=== PATIENT | female | born 1985 | race Caucasian/White ===

== ENCOUNTER 2023-04-13 08:36 | Emergency (ER) | payer OTHER, SELFPAY ==
[2023-04-13 08:41] VITALS: BP 138/89; PULSE 81; RESP 20; TEMP 36.4; O2SAT 97; BMI 52.0
--- NOTE | 2023-04-13 09:02 | ED_ITS ---
HPI - Back Pain/Injury General Chief Complaint: Back Pain/Injury Stated Complaint: BACK PAIN Time Seen by Provider: 04/13/23 08:51 Source: patient Mode of arrival: walk-in Limitations: no limitations History of Present Illness HPI Narrative: This patient is here complaining of right lateral lower back pain. It is not in the midline. She has not had previous back problems. She has no radiculopathy or neurological symptoms. She states she was fine but when she was getting out of her car yesterday she felt a pulling aching sensation at that very moment. It is much worse with twisting and turning and bending. Earlier in the day yesterday, she carried a substantially heavy air conditioner to the curb. She did not have any pain at that time. She does not have any personal history of kidney stones. She has no family history of kidney stones. The pain is made better when she rests and does not turn. It does not run down her leg. There is no bowel or bladder incontinence. Her last menstrual period was 2 weeks ago. She has not seen any blood in her urine. Related Data Home Medications Medication Instructions Recorded Confirmed No Known Home Medications 04/13/23 04/13/23 Allergies Allergy/AdvReac Type Severity Reaction Status Date / Time Sulfa (Sulfonamide Allergy Severe Hives Verified 04/13/23 08:46 Antibiotics) [facility] Medical History (Updated 04/13/23 @ 09:55 by Yossi Mccann MD) No pertinent past medical history ?Z78.9 - Other specified health status (ICD-10) No pertinent past psychiatric history Surgical History (Updated 04/13/23 @ 08:54 by Ovidio Jerry) History of ?Z98.891 - History of uterine scar from previous surgery (ICD-10) Social History Smoking status: Never smoker Exam Narrative Exam Narrative: Patient awake alert pleasant does not appear an extremis. She has no evidence of hypoperfusion to her extremities. Examination of her back there is no skin lesions. Her lungs are completely clear with no wheeze rales or rhonchi. She has no midline pain. The pain is over the right lateral lower lumbar musculature. She has no radiculopathy or neurological symptoms. She has pain when she twists and rotates. She does not have much discomfort when she lies back and is resting. She has no abdominal discomfort at this time. Extremities do not show any abnormalities. Constitutional Vital Signs, click to edit/add: Last Vital Signs Temp 97.6 F 04/13/23 08:41 Pulse 81 04/13/23 08:41 Resp 20 04/13/23 08:41 BP 138/89 04/13/23 08:41 Pulse Ox 97 04/13/23 08:41 O2 Del Method Room Air 04/13/23 08:41 Course Vital Signs Vital signs: Vital Signs Temperature 97.6 F 04/13/23 08:41 Pulse Rate 81 04/13/23 08:41 Respiratory Rate 20 04/13/23 08:41 Blood Pressure 138/89 04/13/23 08:41 Pulse Oximetry 97 04/13/23 08:41 Oxygen Delivery Method Room Air 04/13/23 08:41 Temperature 97.6 F 04/13/23 08:41 Pulse Rate 81 04/13/23 08:41 Respiratory Rate 20 04/13/23 08:41 Blood Pressure 138/89 04/13/23 08:41 Pulse Oximetry 97 04/13/23 08:41 Oxygen Delivery Method Room Air 04/13/23 08:41 MDM - Back Pain/Injury MDM Narrative Medical decision making narrative: This patient presents with classic musculoskeletal type findings after lifting a heavy air conditioner earlier in the day yesterday. She does not have any blood in her urine. She has no family or personal history of ureterolithiasis. Pain is reproduced with twisting and turning and she has no pain while at rest so I believe this is more musculoskeletal. Discharge Plan Discharge Chief Complaint: Back Pain/Injury Clinical Impression: Strain of lumbar region Patient Disposition: Home, Self-Care Time of Disposition Decision: 09:54 Prescriptions / Home Meds: No Action No Known Home Medications Additional Instructions: Moist heat 30 minutes several times a day/Robaxin/[id number] ibuprofen/follow-up with primary care doctor as needed Stand Alone Forms: Portal Instructions Referrals: Diego Nieto DO [Primary Care Provider] - 1 week
[2023-04-13 09:32] LABS: Bilirubin Urine NEGATIVE (NEGATIVE); Blood Urine TRACE-I (NEGATIVE); Clarity Urine CLEAR (CLEAR); Color Urine LT. YELLOW (YELLOW); Glucose Urine UA NEGATIVE (NEGATIVE); Ketones Urine NEGATIVE (NEGATIVE); Leukocyte Esterase Urine NEGATIVE (NEGATIVE); Nitrite Urine NEGATIVE (NEGATIVE); Protein Urine NEGATIVE (NEG/TRACE); Urobilinogen Urine 0.2 EU/dL (0.2-1.0); pH Urine 6.5 (5.0-9.0)
[2023-04-13 09:39] LABS: Urine Microscopic Indicated YES
[2023-04-13 09:48] LABS: Bacteria Urine NONE SEEN #/HPF (NONE SEEN); Cast Seen? NONE SEEN #/LPF (NONE SEEN); Crystals Seen? None Seen #/HPF (None Seen); Mucus Urine NONE SEEN (NONE SEEN); RBC Urine 0-2 #/HPF (0-2); Squamous Epithelial Cell Urine RARE #/LPF (NONE/RARE); Urine Culture Indicated NO; WBC Urine 0-2 #/HPF (NONE SEEN)
== END 2023-04-13 10:09 | disposition home or self-care (01) ==
PROVIDERS: Emergency Provider Emergency Medicine Emergency Medical Services; PCP Internal Medicine
DX: S39.012A Strain of muscle, fascia and tendon of lower back, initial encounter (principal); X50.9XXA Other and unspecified overexertion or strenuous movements or postures, initial encounter; Z98.891 History of uterine scar from previous surgery
CPT/HCPCS: 81001; 99283

== ENCOUNTER 2023-08-31 21:22 | Emergency (ER) | payer OTHER, SELFPAY ==
--- OUTSIDE RECORDS SUMMARY | 2023-08-31 21:27 | XMS_ITS | CCD ---
Author Organization [facility] Care Team Providers Care Admitting Office Escort Name Role Phone Kashif Yun Unavailable Unavailable Jama, Kashif Theresa Unavailable Unavailable Kelechi Yunolas A Unavailable Unavailable BALL, [phone] UNKNOWN Unavailable Unavailable Brown, Kashif A Unavailable Unavailable Brown, Kashif A Unavailable Unavailable Brown, Kashif A Unavailable Unavailable BALL, DIEGO~[phone] UNKNOWN Unavailable Unavailable Ball, Diego Primary Care Unavailable Shahideh, Cricket Admitting Unavailable Shahideh, Cricket Attending Unavailable BALL, DR CORTEZ Attending Unavailable BALL, DR CORTEZ Primary Care Unavailable BALL, DR CORTEZ Admitting Unavailable BALL, DR CORTEZ Primary Care Unavailable BALL, DR CORTEZ Admitting Unavailable BALL, DR CORTEZ Attending Unavailable BALL, DR CORTEZ Consulting Unavailable BALL, DR CORTEZ Primary Care Unavailable BALL, DR CORTEZ Admitting Unavailable BALL, DR CORTEZ Attending Unavailable Ball, Diego Unavailable Allergies Allergy Classification Reported Allergen(s) Allergy Type Date of Onset Reaction(s) Facility (1 source) sulfamethoxazole; Translations: [sulfamethoxazole ] Drug Allergy [facility] Repository (1 source) No Known Allergies; Translations: [No Known Allergies] Propensity to adverse reactions (disorder) [facility] Repository (1 source) Sulfonamides (Antibiotic) Drug allergy (disorder) 08-21-[address] [facility] Repository (1 source) Sulfonamides (Antibiotic) Drug allergy (disorder) 10-12-[address] [facility] Repository (1 source) patient allergy list reviewed by nurse or physicia Propensity to adverse reactions 04-24-19 Comment:Done [employer] Other (2 sources) Substance with sulfonamide structure and antibacterial mechanism of action (substance) Drug allergy Unknown [facility] Other Medications Current Medications Medication Drug Class(es) Dates Sig (Normalized) Sig (Original) azithromycin 250 mg oral tablet (4 sources) Macrolide Antimicrobial Start: 06-05-2023 Azithromycin Active 250 MG PO daily 6 5 June 05, 2023 12:00am Take 2 today and then one for each additional day for the next 4 days. Start: 09-12-2022 Azithromycin 2 50 MG as directed Orally daily for 5 days Dec, Active cyclobenzaprine hydrochloride 5 mg oral tablet (1 source) Muscle Relaxant Start: 01-19-2022 take 1 tablet by mouth once at bedtime cyclobenzaprine 5mg cyclobenzaprine 5mg, 1 (one) tablet q HS # 30, 01/19/2022, No Refill. Active oral q HS for 30 *Reorder from [employer] for eRx and Interaction Alerts* Jan, Active lisinopril 5 mg oral tablet (3 sources) Angiotensin Converting Enzyme Inhibitor Start: 06-05-2023 take 5 mg by mouth once daily Lisinopril Active 5 MG PO Daily June 05, 2023 12:00am Start: 11-29-2021 take 1 tablet by kaylyn th once daily Lisinopril 5 MG lisinopriL 5mg, 1 (one) Tablet daily # 30, 11/29/2021, Ref. x11. Active Oral daily for 30 Nov, Active sertraline 100 mg oral tablet (3 sources) Serotonin Reuptake Inhibitor Start: 06-05-2023 take 100 mg by mouth once daily Sertraline Active 100 MG PO Daily June 05, 2023 12:00am Start: 12-14-2021 sertraline 100 mg sertraline 100mg, 1 (one and a half) Tablet q HS # 30, 12/14/2021, Ref. x5. Active oral q HS for 0 *Reorder from [employer] for eRx and Interaction Alerts* Dec, Active Completed/Discontinued Medications Medication Drug Class(es) Dates Sig (Normalized) Sig (Original) cephalexin 500 mg oral capsule (1 source) Cephalosporin Antibacterial Start: 08-20-2017 End: 08-30-2017 take 1 g by mouth twice daily Cephalexin (Keflex) 500 mg capsule Discontinued 1 GM PO Twice daily 40 10 August 20, 2017 12:00am August 30, 2017 12:01am Problems Active Problems Problem Classification Problem Date Documented Date Episodic/Chronic Acute bronchitis (1 source) Acute bronchitis due to other specified organisms Episodic Anxiety disorders (2 sources) Generalized anxiety disorder; Translations: [Generalized anxiety disorder] Chronic Chronic obstructive pulmonary disease and bronchiectasis (3 sources) Bronchitis; Translations: [Bronchitis, not specified as acute or chronic] 06-05-2023 Episodic Essential hypertension (3 sources) Essential hypertension; Translations: [Essential (primary) hypertension] Chronic Fever of unknown origin (2 sources) Fever; Translations: [Fever, unspecified] 06-05-2023 Episodic Headache; including migraine (1 source) Headache; Translations: [Headache, unspecified] Episodic Headache; including migraine (5 sources) Headache; including migraine; Translations: [HEADACHE UNSPECIFIED] Onset: 01-30-2022 Menstrual disorders (2 sources) Light and infrequent menstruation; Translations: [Scanty or infrequent menstruation] Onset: 04-10-2008 Chronic Miscellaneous mental health disorders (1 source) Occipital headache; Translations: [Occipital headache] Chronic Other circulatory disease (1 source) Pulmonary congestion ; Translations: [Other specified symptoms and signs involving the circulatory and respiratory systems] 06-05-2023 Episodic Other circulatory disease (1 source) Other specified symptoms and signs involving the circulatory and respiratory systems; Translations: [Other symptoms involving respiratory system and chest] 06-05-2023 Episodic Other connective tissue disease (2 sources) Other symptoms and signs involving the nervous system; Translations: [Other symptoms and signs involving the nervous system] Episodic Other nervous system disorders (1 source) Carpal tunnel syndrome; Translations: [Carpal tunnel syndrome, bilateral upper limbs] Chronic Other nervous system disorders (2 sources) Meralgia paresthetica; Translations: [Meralgia paresthetica, unspecified lower limb] Chronic Other nutritional; endocrine; and metabolic disorders (1 source) Obesity; Translations: [Obesity, unspecified] Onset: 09-12-2013 Chronic Other nutritional; endocrine; and metabolic disorders (1 source) Morbid obesity; Translations: [Morbid (severe) obesity due to excess calories] Chronic Other nutritional; endocrine; and metabolic disorders (1 source) Obese class II; Translations: [Body mass index 35.0-35.9, adult] Onset: 04-23-2018 Chronic Residual codes; unclassified (1 source) Hypersomnia; Translations: [Hypersomnia, unspecified] Chronic Residual codes; unclassified (1 source) Daytime hypersomnia; Translations: [Other hypersomnia] Chronic Sprains and strains (5 sources) Strain of muscle, fascia and tendon at neck level, subsequent encounter; Translations: [STRN MUSC FASC TENDON NECK LEVL SUB] Onset: 01-26-2022 Episodic Unclassified (1 source) R10.9 - Unspecified abdominal pain; Translations: [R10.9 - Unspecified abdominal pain] Onset: 08-20-2017 Unclassified (1 source) Encounter for insertion or removal of intrauterine contraceptive device; Translations: [Encounter for insertion or removal of intrauterine contraceptive device] Onset: 04-28-2008 Unclassified (1 source) Surveillance of intrauterine device contraception done; Translations: [Surveillance of previously prescribed intrauterine contraceptive device] Onset: 06-12-2007 Past or Other Problems Problem Classification Problem Date Documented Da te Episodic/Chronic Allergic reactions (1 source) Allergic contact dermatitis caused by chemical; Translations: [Allergic contact dermatitis due to other chemical products] Onset: 08-09-2017 Episodic Bacterial infection; unspecified site (1 source) Bacterial infectious disease; Translations: [Bacterial infection, unspecified, in conditions classified elsewhere and of unspecified site] Onset: 04-23-2018 Episodic Genitourinary symptoms and ill-defined conditions (2 sources) Frequency of micturition; Translations: [Female genital organ symptoms] Onset: 06-16-2008 Episodic Headache; including migraine (1 source) Migraine with aura; Translations: [Migraine with aura, not intractable, without status migrainosus] Resolved: 01-19-2022 Chronic Inflammatory diseases of female pelvic organs (1 source) Vaginitis and vulvovaginitis; Translations: [Unspecified vaginitis and vulvovaginitis] Onset: 04-10-2008 Episodic Other circulatory disease (1 source) Elevated blood-pressure reading without diagnosis of hypertension; Translations: [Elevated blood-pressure reading, without diagnosis of hypertension] Resolved: 02-11-2021 Episodic Other connective tissue disease (2 sources) Plantar fascial fibromatosis; Translations: [Plantar fascial fibromatosis] Onset: 09-12-2013 Resolved: 01-26-2021 Episodic Other upper respiratory infections (1 source) Acute maxillary sinusitis; Translations: [Acute maxillary sinusitis, unspecified] Onset: 04-23-2018 Episodic Pneumonia (except that caused by tuberculosis or sexually transmitted disease) (1 source) Bacterial pneumonia; Translations: [Pneumonia due to other specified bacteria] Resolved: 01-26-2021 Episodic Viral infection (2 sources) Disease caused by 2019-nCoV; Translations: [COVID-19] Resolved: 01-26-2021 Results Test Name Value Interpretation Reference Range Facility Automated epithelial cells c ount in urine sediment (number/area)on 04-13-2023 Epithelial cells Auto (Urine sed) [#/Area] RARE #/LPF NONE/RARE [facility] Automated leukocytes count i n urine sediment (number/area)on 04-13-2023 WBC Auto (Urine sed) [#/Area] 0-2 #/HPF 0-[address] [facility] Automated urine specific gra vity by refractometryon 04-13-2023 Specific gravity Refractometry automated (U) [Rel density] 1.010 1.005-1.[address] [facility] Bilirubin Auto test strip (U ) [Mass/Vol]on 04-13-2023 Bilirubin (U) [Mass/Vol] Negative NEGATIVE [facility] Casts typing in urine sedime nt by light microscopyon 04-13-2023 Casts LM Nom (Urine sed) NONE SEEN #/LPF NONE SEEN [facility] Color Auto (U)on 04-13-2023 Color (U) LT. YELLOW YELLOW [facility] Ketones Auto test strip (U) [Mass/Vol]on 04-13-2023 Ketones (U) [Mass/Vol] Negative NEGATIVE [facility] Mucus LM Ql (Urine sed)on Mucus Ql (Urine sed) NONE SEEN NONE SEEN [facility] No Panel Informationon Urine Culture Reflexed NO [facility] Urine Microscopic Review YES [facility] Protein Auto test strip (U) [Mass/Vol]on 04-13-2023 Protein (U) [Mass/Vol] Negative NEG/TRACE [facility] Specific gravity Auto test s trip (U) [Rel density]on 04-13-2023 Specific gravity (U) [Rel density] CLEAR CLEAR [facility] Urine bacteria detection by automated methodon 04-13-2023 Bacteria Auto Ql (U) NONE SEEN #/HPF NONE SEEN [facility] Urine glucose measurement by test strip (mass/volume)on 04-13-2023 Glucose Test strip (U) [Mass/Vol] Negative NEGATIVE [facility] Urine hemoglobin detection b y automated test stripon 04-13-2023 Hemoglobin Auto test strip Ql (U) TRACE-I NEGATIVE [facility] Urine nitrite detection by a utomated test stripon 04-13-2023 Nitrite Auto test strip Ql (U) Negative NEGATIVE [facility] Urine sediment crystal ident ification by light microscopyon 04-13-2023 Crystals LM Nom (Urine sed) None Seen #/HPF None Seen [facility] Urine sediment leukocyte cou nt by microscopy (number/high power field)on 04-13-2023 WBC LM.HPF (Urine sed) [#/Area] 0-2 #/HPF NONE SEEN [facility] Urobilinogen Auto test strip (U) [Mass/Vol]on 04-13-2023 Urobilinogen Qn (U) 0.2 {Esthela'U}/dL 0.2-1.[address] [facility] pH Auto test strip (U)on pH (U) 6.5 [pH] 5.0-9.[address] [facility] CBC AUTO DIFFon 05-03-2021 BASO # 0.0 103/ul Normal 0.0-0.[address] [facility] Comment on above: Performed By: #### C BC #### [facility] [address] [place] [address] Dr. Antonio Goldberg Basophils/100 WBC (Bld) 0.4 % Normal 0.2-2.0 [facility] Comment on above: Performed By: #### C BC #### [facility] [address] [address] [address] Antonio Goldberg EO # 0.1 103/ul Normal 0.0-0.7 [facility] Comment on above: Performed By: #### C BC #### [facility] [address] [address] [address] Antonio Goldberg Eosinophils/100 WBC (Bld) 1.8 % Normal 0.9-7.0 [facility] Comment on above: Performed By: #### C BC #### [facility] [address] [place] [address] Dr. Antonio Goldberg Erythrocyte distribution width (RBC) [Ratio] 13.7 % Normal 11.0-15.[address] [facility] Comment on above: Performed By: #### C BC #### [facility] [address] [place] [address] Dr. Antonio Goldberg Hematocrit (Bld) [Volume fraction] 42.1 % Normal 36.0-48.[address] [facility] Comment on above: Performed By: #### C BC #### [facility] [address] [place] [address] Dr. Antonio Goldberg Hemoglobin (Bld) [Mass/Vol] 13.7 g/dL Normal 12.0-16.[address] [facility] Comment on above: Performed By: #### C BC #### [facility] [address] [place] [address] Dr. Antonio Goldberg IG # 0.02 10e3/ul Normal 0.00-0.[address] [facility] Comment on above: Performed By: #### C BC #### [facility] [address] [place] [address] Dr. Antonio Goldberg IG % 0.3 % Normal 0.0-0.[address] [facility] Comment on above: Performed By: #### C BC #### [facility] [address] [place] [address] Dr. Antonio Goldberg LYMPH # 1.8 103/ul Normal 1.2-3.[address] [facility] Comment on above: Performed By: #### C BC #### [facility] [address] [place] [address] Dr. Antonio Goldberg Lymphocytes/100 WBC (Bld) 26.0 % Normal 20.5-60.[address] [facility] Comment on above: Performed By: #### C BC #### [facility] [address] [place] [address] Dr. Antonio Goldberg MANUAL DIFF REQ NO Normal [facility] Comment on above: Performed By: #### C BC #### [facility] [address] [place] [address] Dr. Antonio Goldberg MCH (RBC) [Entitic mass] 29.3 pg Normal 26.7-34.0 [facility] Comment on above: Performed By: #### C BC #### [facility] [address] [place] [address] Dr. Antonio Goldberg MCHC (RBC) [Mass/Vol] 32.5 g/dL Normal 29.9-35.2 [facility] Comment on above: Performed By: #### C BC #### [facility] [address] [place] [address] Dr. Antonio Goldberg MCV (RBC) [Entitic vol] 90.0 fL Normal 81.0-99.[address] [facility] Comment on above: Performed By: #### C BC #### [facility] [address] [place] [address] Dr. Antonio Goldberg MONO # 0.4 103/ul Normal 0.3-0.8 [facility] Comment on above: Performed By: #### C BC #### [facility] [address] [place] [address] Dr. Antonio Goldberg Monocytes/100 WBC (Bld) 5.3 % Normal 1.7-12.[address] [facility] Comment on above: Performed By: #### C BC #### [facility] [address] [place] [address] Dr. Antonio Goldberg NEUT # 4.7 103/ul Normal 1.4-6.5 [facility] Comment on above: Performed By: #### C BC #### [facility] [address] [place] [address] Dr. Antonio Goldberg Neutrophils/100 WBC (Bld) 66.2 % Normal 43.0-75.0 [facility] Comment on above: Performed By: #### C BC #### [facility] [address] [place] [address] Dr. Antonio Goldbegr Platelet mean volume (Bld) [Entitic vol] 9.3 fL Critically low 9.5-13.5 [facility] Comment on above: Performed By: #### C BC #### [facility] [address] [address] [address] Antonio Goldberg PLT 318 103/ul Normal 150-450 [facility] Comment on above: Performed By: #### C BC #### [facility] [address] [address] [address] Antonio Goldberg RBC 4.68 106/ul Normal 4.20-5.40 [facility] Comment on above: Performed By: #### C BC #### [facility] [address] [address] [address] Antonio Goldberg WBC 7.0 103/ul Normal 4.0-11.0 [facility] Comment on above: Performed By: #### C BC #### [facility] [address] [place] [address] Dr. Antonio Goldberg LIPID PROFILEon 05-03-2021 CHOL-HDL RATIO NORM SEE BELOW Normal [facility] Comment on above: Result Comment: 3.3 - 4.4 LOW RISK 4.4 - 7.1 AVERAGE RISK 7.1 - 11.0 MODERATE RISK >11.0 HIGH RISK Performed By: #### L IPID, TSH, CMP #### [facility] [address] [place] [address] Dr. Antonio Goldberg Cholesterol [Mass/Vol] 210 mg/dL Critically high <=[address] [facility] Comment on above: Performed By: #### L IPID, TSH, CMP #### [facility] [address] [place] [address] Dr. Antonio Golbderg Cholesterol in HDL [Mass/Vol] 62 mg/dL Critically high 40-60 [facility] Comment on above: Performed By: #### L IPID, TSH, CMP #### [facility] [address] [place] [address] Dr. Antonio Goldberg Cholesterol in LDL [Mass/Vol] 138.6 mg/dL Normal [facility] Comment on above: Performed By: #### L IPID, TSH, CMP #### [facility] [address] [place] [address] Dr. Antonio Goldberg Cholesterol.total/ Cholesterol in HDL [Mass ratio] 3.4 {ratio} Normal [facility] Comment on above: Performed By: #### L IPID, TSH, CMP #### [facility] [address] [address] [address] Antonio Goldberg HDL NORMAL > or = 60 mg/dl - LO W CARDIOVASCULAR RISK <40 mg/dl - HIGH CARDIOVASCULAR RISK Normal [facility] Comment on above: Performed By: #### L IPID, TSH, CMP #### [facility] [address] [address] [address] Antonio Goldberg LDL CALC NORMAL SEE BELOW Normal [facility] Comment on above: Result Comment: <100 mg/dl OPTIMAL 100 - 129 mg/dl NEAR OR ABOVE OPTIMAL 130 - 159 mg/dl BORDERLINE HIGH 160 - 189 mg/dl HIGH >190 mg/dl VERY HIGH Performed By: #### L IPID, TSH, CMP #### [facility] [address] [place] [address] Dr. Antonio Goldberg Triglyceride [Mass/Vol] 47 mg/dL Normal <=[address] [facility] Comment on above: Performed By: #### L IPID, TSH, CMP #### [facility] [address] [address] [address] Antonio Goldberg VLDL CALC 9.4 mg/dL Normal [facility] Comment on above: Performed By: #### L IPID, TSH, CMP #### [facility] [address] [place] [address] Dr. Antonio Goldberg PROF 14(COMP METB)on 022 Albumin [Mass/Vol] 3.3 g/dL Critically low 3.4-5.0 [facility] Comment on above: Performed By: #### L IPID, TSH, CMP #### [facility] [address] [place] [address] Dr. Antonio Goldberg Albumin/Globulin [Mass ratio] 0.9 {ratio} Normal [facility] Comment on above: Performed By: #### L IPID, TSH, CMP #### [facility] [address] [address] [address] Antonio Goldberg ALP [Catalytic activity/Vol] 96 U/L Normal 46-[address] [facility] Comment on above: Performed By: #### L IPID, TSH, CMP #### [facility] [address] [place] [address] Dr. Antonio Goldberg ALT [Catalytic activity/Vol] 26 U/L Normal 14-[address] [facility] Comment on above: Performed By: #### L IPID, TSH, CMP #### [facility] [address] [place] [address] Dr. Antonio Goldberg Anion gap [Moles/Vol] 9.6 mmol/L Normal [facility] Comment on above: Performed By: #### L IPID, TSH, CMP #### [facility] [address] [place] [address] Dr. Antonio Goldberg AST [Catalytic activity/Vol] 13 U/L Critically low 15-[address] [facility] Comment on above: Performed By: #### L IPID, TSH, CMP #### [facility] [address] [place] [address] Dr. Antonio Goldberg Bilirubin [Mass/Vol] 0.5 mg/dL Normal 0.2-1.[address] [facility] Comment on above: Performed By: #### L IPID, TSH, CMP #### [facility] [address] [place] [address] Dr. Antonio Goldberg Calcium [Mass/Vol] 8.3 mg/dL Critically low 8.5-10.1 [facility] Comment on above: Performed By: #### L IPID, TSH, CMP #### [facility] [address] [place] [address] Dr. Antonio Goldberg Chloride [Moles/Vol] 105 mmol/L Normal 98-[address] [facility] Comment on above: Performed By: #### L IPID, TSH, CMP #### [facility] [address] [place] [address] Dr. Antonio Goldberg CO2 [Moles/Vol] 28.9 mmol/L Normal 22.0-30.[address] [facility] Comment on above: Performed By: #### L IPID, TSH, CMP #### [facility] [address] [address] [address] Antonio Goldberg Creatinine [Mass/Vol] 0.73 mg/dL Normal 0.52-1.04 [facility] Comment on above: Performed By: #### L IPID, TSH, CMP #### [facility] [address] [address] [address] Antonio Goldberg EGFR-AF JAMAICAN >60 Normal >=60 [facility] Comment on above: Performed By: #### L IPID, TSH, CMP #### [facility] [address] [address] [address] Antonio Goldberg EGFR-NON AF [place] >60 Normal >=60 [facility] Comment on above: Performed By: #### L IPID, TSH, CMP #### [facility] [address] [place] [address] Dr. Antonio Goldberg Globulin (S) [Mass/Vol] 3.6 g/dL Normal [facility] Comment on above: Performed By: #### L IPID, TSH, CMP #### [facility] [address] [place] [address] Dr. Antonio Goldberg Glucose [Mass/Vol] 92 mg/dL Normal 74-106 [facility] Comment on above: Performed By: #### L IPID, TSH, CMP #### [facility] [address] [place] [address] Dr. Antonio Goldberg Potassium [Moles/Vol] 4.5 mmol/L Normal 3.4-5.0 [facility] Comment on above: Performed By: #### L IPID, TSH, CMP #### [facility] [address] [place] [address] Dr. Antonio Goldberg Protein [Mass/Vol] 6.9 g/dL Normal 6.1-8.2 [facility] Comment on above: Performed By: #### L IPID, TSH, CMP #### [facility] [address] [address] [address] Antonio Goldberg Sodium [Moles/Vol] 139 mmol/L Normal 137-145 [facility] Comment on above: Performed By: #### L IPID, TSH, CMP #### [facility] [address] [address] [address] Antonio Goldberg Urea nitrogen [Mass/Vol] 14.0 mg/dL Normal 7.0-18.[address] [facility] Comment on above: Performed By: #### L IPID, TSH, CMP #### [facility] [address] [place] [address] Dr. Antonio Goldberg Urea nitrogen/Creatinin e [Mass ratio] 19.2 mg/mg Normal [facility] Comment on above: Performed By: #### L IPID, TSH, CMP #### [facility] [address] [place] [address] Dr. Antonio Goldberg TSHon 05-03-2021 TSH 1.251 uIU/mL Normal 0.470-4.[address] [facility] Comment on above: Performed By: #### L IPID, TSH, CMP #### [facility] [address] [place] [address] Dr. Antonio Goldberg TSH RANGE SEE BELOW Normal [facility] Comment on above: Result Comment: <0.3 4 UIU/ml HYPERTHYROID 0.34-5.60 UIU/ml EUTHYROID >5.60 UIU/ml HYPOTHYROID Performed By: #### L IPID, TSH, CMP #### [facility] [address] [place] [address] Dr. Antonio Goldberg VITAMIN B12on 05-03-2021 Cobalamin (Vitamin B12) [Mass/Vol] 562.0 pg/mL Normal 239.0-931.[address] [facility] Comment on above: Performed By: #### V ITB12 #### [facility] [address] [place] [address] Dr. Antonio Goldberg Progress Note-Physicianon Protein mass conc Patient: Anette OLIVER Age: 32 years Sex: Female : 1985 Associated Diagnoses: None Author: Amol Cuenca MD Postoperative Information Post Operative Note: Post Anesthesia Care Unit. Anesthetic utilized: General. Health Status Allergies: Allergic Reactions (All)Severity Not DocumentedSulfamethoxazole- Hives.Canceled/Inactive Reactions (All)No Known Allergies Problem list: All ProblemsPlantar fasciitis left foot / SNOMED CT 821812508 / Confirmed Physical Examination Intake and Output adequate hydration Pain assessment: Self-reports no pain. General: Alert and oriented, No acute distress. HENT: Oral mucosa is moist, dentition unchanged. Respiratory: Respirations: Are within normal limits. Pattern: Regular. Cardiovascular: Normal rate. Neurologic: Alert, Oriented. Review / Management Lines and Tubes: Peripheral catheter. ECG interpretation: Within normal limits. Condition: Stable. Assessment Anesthetic outcome No anesthetic complications noted. Adequate pain relief. No Complaint of nausea and vomiting. Plan Transfer/ Discharge: Patient can be discharged from PACU when criteria met, Patient can be discharged from anesthesia care. Condition stable. Normal [facility] Comment on above: Result Comment: Elec tronically Signed By: Amol Cuenca MD\.br\Date and Time Signed: 09/29/17 14:29 EDT Coding Summary.on 09-25-2017 Coding Summary. CODING DATE: 018 [facility] STATUS: Home (Routine DC) PAYOR: Brandon APC DESCRIPTION 5113 Level 3 Musculoskeletal Procedures ADMIT DX: REASON FOR VISIT DX: M72.2 Plantar fascial fibromatosis FINAL DX: PRINCIPAL: M72.2 Plantar fascial fibromatosis SECONDARY: PYMT PROC APC STAT DESCRIPTION DOCTOR NAME DATE [id number] J1 Fasciotomy, foot and/or Brown Kashif GREEN 09/20/2017 toe LT Left side (used to identify procedures performed on the left side of the body) [id number] Anesthesia for Amol Cuenca MD 09/20/2017 procedures on nerves, muscles, tendons, and fascia of lower leg, ankle, and foot; not otherwise specified NOTE: The code number assigned matches the documented diagnosis and / or procedure in the patient's chart. However, the narrative phrase printed from the coding software may appear abbreviated, or result in slightly different terminology. Revised Coded By: Vanessa Haskins Revised Date Saved: 09/25/2017 11:35 am Normal [facility] Progress Note-Physicianon Protein mass conc Patient: Anette OLIVER Age: 32 years Sex: Female : 1985 Associated Diagnoses: None Author: Amol Cuenca MD Preoperative Information Anesthesia history: Patient History: No personal or Family history of problems with anesthesia. Re-eval prior to induction: Inital eval reviewed: No significant interval change. Review of Systems Constitutional: Negative. Cardiovascular: Cardiovascular risk stratafacation reviewed, 1 FOS without difficulty, No chest pain. Respiratory: No SOB. Hematology/Lymphatics: Negative. Gastrointestinal: Negative. Musculoskeletal: Negative. Neurologic: Negative. Health Status Allergies: Allergic Reactions (Selected)Severity Not DocumentedSulfamethoxazole- Hives. Current medications: (Selected) Inpatient MedicationsOrderedCefazolin 2 gram IVPB: 2 gram = 50 mL, Soln-IV, IV Piggyback, PREOP, Routine, Start date 09/20/17 6:30:00 EDT, 100 mL/hr, Infuse over 30 minute(s)Lactated Ringers IV Mary 1000 mL 1,000 mL: 1,000 mL, IV, 150 mL/hr, Routine, Start date 09/20/17 6:30:00 EDT, 6.7 hour(s), Total volume (mL): 1,000Documented MedicationsDocumentedibuprof en: 400 mg, Oral, q6hr, PRN as needed for pain Problem list: All ProblemsPlantar fasciitis left foot / SNOMED CT 052684294 / Confirmed Histories Past Medical History: No active or resolved past medical history items have been selected or recorded. Procedure history: Caesarean section ([id number]). Social History Social & Psychosocial VaavwgGnphkpp59/03/2018 Risk Assessment: Denies Alcohol UseSubstance Abuse09/15/2017 Risk Assessment: Denies Substance XfaarEaplxtk80/03/2018 Risk Assessment: Denies Tobacco Use. Physical Examination Pain assessment: Self-reports no pain. Airway: Mallampati classification: II (soft palate, fauces, uvula visible). Distance: Adequate. Mouth: Adequate opening. Neck: Full range of motion. Respiratory: Respirations are non-labored. Cardiovascular: Regular rhythm. Neurologic: Alert, Oriented. Review / Management Results review: No qualifying data available. Plan [place] [employer]esthesiologists (ASA) physical status classification: Class II. Anesthetic Preoperative Plan Anesthesia: General. , discussed the benefits of obstaing from tobacco products. Anesthetic plan, risks, benefits, and alternatives discussed with the patient and/or family. Patient verbalized understanding. Pt agrees with anesthetic plan and accepts all risks including but not limited to; Bleeding, infection, nerve injury, dental injury, eye injury, headache, low blood pressure, serious problems with the heart and lungs, allergic reactions, and .. Normal [facility] Comment on above: Result Comment: Elec tronically Signed By: Bang KOO, Amol\.br\Date and Time Signed: 09/25/17 10:41 EDT Main OR Intraoperative Recor don 09-21-2017 Main OR Intraoperative Record IntraOp Document Type FT Summary Primary Physician: Kashif Yun DPM Finalized Date/Time: 09/21/17 09:37:52 Pt. Name: COOKIE OLIVER/Sex: 1985 Female Med Rec #: [id number] Physician: Kashif Yun DPM Financial #: [id number] Pt. Type: A Room/Bed: [place] [address] Admit/Disch: 09/20/17 06:31:00 - 09/20/17 10:30:00 Institution: Case Times FT Entry 1 Patient Times In Room 09/20/17 08:20:00 Out Room 09/20/17 08:50:00 Procedure Times Start 09/20/17 08:32:00 Stop 09/20/17 08:48:00 Anesthesia Times Start 09/20/17 08:20:00 Stop 09/20/17 08:50:00 Last Modified By: Mar George CST 09/20/17 08:51:59 General Comments: 09/21/2017 Chart opened to review and send charges David Cuenca CST Case Attendance FT Entry 1 Entry 2 Entry 3 Case Attendee Areli Quintana DPM, Kashif York RN, CNOR, Edel Role Performed Anesthesiologist Surgeon - Primary RELIEF MAN [employer] Supervisor Time In 09/20/17 08:20:00 09/20/17 08:23:00 09/20/17 08:20:00 Time Out 09/20/17 08:50:00 09/20/17 08:50:00 09/20/17 08:50:00 Procedure PLANTAR FASCIA PLANTAR FASCIA PLANTAR FASCIA RELEASE(Left) RELEASE(Left) RELEASE(Left) Comments DR. CUENCA SUPERVISING Last Modified By: Wallace CHU, Tayler Gonsalez RN, Tayler Gonsalez RN, Tayler Hill 09/20/17 08:52:00 09/20/17 08:52:00 09/20/17 08:52:00 Entry 4 Entry 5 Entry 6 Case Attendee Wallace CHU, Tayler Gallegos RN, Diego Banks CST Role Performed Parimutuel Cashier - Primary Parimutuel Cashier - Primary Scrub - Primary Time In 09/20/17 08:20:00 09/20/17 08:20:00 09/20/17 08:20:00 Time Out 09/20/17 08:50:00 09/20/17 08:50:00 09/20/17 08:50:00 Procedure PLANTAR FASCIA PLANTAR FASCIA PLANTAR FASCIA RELEASE(Left) RELEASE(Left) RELEASE(Left) Comments Last Modified By: Wallace CHU, Tayler Gonsalez RN, Tayler Carlson RN 09/20/17 08:52:00 09/20/17 08:52:00 09/20/17 08:52:00 Perioperative Protocols FT Pre-Care Text: Implements protective measures prior to operative or invasive procedure, confirms identity before the operative or invasive procedure, verifies operative procedure, surgical site, and laterality Entry 1 Procedure(s) PLANTAR FASCIA Patient Identity Birthday, ID Band RELEASE(Left) Verified (select at Check, Patient least 2): Participation Consents / H and P Anesthesia Consent, Operative Site Present Verified HandP, Surgery/Procedure Marking Verified Consent Surgical Site Yes Laterality Verified Yes Verified Procedure Verified Yes Correct Patient Yes Position Verified Availability Equipment, Medication Prep Dry Yes Verified (If Applicable) PreOp Antibiotic Yes Time Out Areli Quintana, Given Participants Jama GREEN, Jaylen Rodgers RN, JULIANOR, Wallace Hollingsworth RN, El Landrum RN, Dorian Roblero CST, Diego Time Out Complete 09/20/17 08:31:00 Outcomes Met? Yes Last Modified By: Tayler Gonsalez RN 09/20/17 08:31:22 Post-Care Text: The patient is free from signs and symptoms of injury caused by extraneous objects Allergy Information FT Pre-Care Text: Verifies allergies Entry 1 Allergies Reviewed? Yes Allergies Reviewed Self/Patient With Outcomes Met? Yes Last Modified By: Tayler Gonsalez RN 09/20/17 08:09:43 Post-Care Text: The patient received appropriate medication(s) safely administered during the perioperative period Surgical Procedures FT Entry 1 Procedure Description Procedure PLANTAR FASCIA RELEASE Modifiers Left Surgeon Description LEFT FOOT PLANTAR FASCIOTOMY Primary Procedure Yes Primary Surgeon Kashif Yun DPM Start 09/20/17 08:32:00 Stop 09/20/17 08:48:00 Anesthesia Type General Surgical Service Podiatry Wound Class 1 - Clean Last Modified By: Tayler Gonsalez RN 09/20/17 08:52:07 General Case Data FT Pre-Care Text: Classifies surgical wound, implements aseptic technique, initiates traffic control Entry 1 Case Information OR OR 4 FT Case Level Level 2 Wound Class 1 - Clean Specialty Podiatry ASA Class 2 Preop Diagnosis LEFT FOOT PLANTAR Postop Same As Preop Yes FASCIITIS Postop Diagnosis LEFT FOOT PLANTAR Outcomes Met? Yes FASCIITIS Last Modified By: Tayler Gonsalez RN 09/20/17 08:35:01 Post-Care Text: The patient is free from signs and symptoms of infection Skin Assessment (Pre Procedure) FT Pre-Care Text: Implements protective measures to prevent skin/ tissue injury due to thermal or mechanical sources Evaluates for signs and symptoms of physical injury to skin and tissue Entry 1 Skin Integrity Intact, [place], Warm, and Skin Abnormality Yes Dry, Bruised Abnormality Location LEFT EYE Abnormality Type BRUISE Outcomes Met? Yes Last Modified By: Tayler Gonsalez RN 09/20/17 08:29:34 Post-Care Text: The patient is free from signs and symptoms of injury caused by extraneous objects Patient Positioning FT Pre-Care Text: Identifies physical alterations that require additional precautions for procedure-specific positioning, verifies presence of prosthetics or corrective devices, positions the patient, evaluates the patient for signs and symptoms of injury as a result of positioning Entry 1 Procedure PLANTAR FASCIA Body Position Supine RELEASE(Left) Feet Uncrossed? Yes Left Arm Position Extended on Padded Arm Board Right Arm Position Extended on Padded Arm Left Leg Position Extended Board Right Leg Position Extended Positioning Device Safety Strap, Pillow Under Head Large Press Points Checked Yes By Areli Quintana, Tayler Gonsalez RN, Hord RN, Annika Outcomes Met? Yes Last Modified By: Tayler Gonsalez RN 09/20/17 08:36:11 Post-Care Text: The patient is free from signs and symptoms of injury related to positioning Patient Care Devices FT Pre-Care Text: Implements protective measures to prevent skin/ tissue injury due to thermal or mechanical sources Entry 1 Entry 2 Entry 3 Equipment Type MISTRAL FORCED AIR MONITOR CHARGE SURGERY TOURNIQUET NORMAN [F] WARMING SYSTEM UNIT[F] [F] Equipment Number [id number] Equipment Setting Outcomes Met? Yes Yes Yes Last Modified By: Tayler Gonsalez RN, RN, Karen M Farris RN, Karen M 09/20/17 08:40:41 09/20/17 08:40:41 09/20/17 08:40:41 Post-Care Text: The patient is free from signs and symptoms of injury caused by extraneous objects Transport To OR FT Pre-Care Text: Transports according to individual needs. Evaluates for signs and symptoms of skin and tissue injury as a result of transfer or transport Entry 1 Via Cart By Annika Gallegos RN Safety Precautions Side Rails Up Outcomes Met? Yes Last Modified By: Tayler Gonsalez RN 09/20/17 08:29:58 Post-Care Text: The patient is free from signs and symptoms of injury related to transfer/transport Cautery FT Pre-Care Text: Implements protective measures to prevent injury due to electrical sources, and evaluates for signs and symptoms of electrical injury Entry 1 ESU Identification ESU Settings Cut 25 Coag 25 ESU Grounding Pad Site Right Thigh Pre Pad Site Clear and Intact Condition Post Pad Site Clear and Intact Grounding Pad Annika Gallegos RN Condition Placed By Outcomes Met? Yes Last Modified By: Tayler Gonsalez RN 09/20/17 08:30:26 Post-Care Text: The patient if free from signs and symptoms of electrical injury Counts Verification FT Pre-Care Text: Performs required counts Entry 1 Entry 2 Procedure(s) PLANTAR FASCIA PLANTAR FASCIA RELEASE(Left) RELEASE(Left) Type Initial Final Items Sponges, Sharps Sponges, Sharps Status Correct Correct Time By Dorian JENKINS, Dorian Cortez CST, Jaylen Cortez RN, CNOR, Wallace CHU, Tayler Hollingsworth Outcomes Met? Yes Yes Last Modified By: Tayler Gonsalez RN, RN, Karen M 09/20/17 08:30:36 09/20/17 08:39:14 Post-Care Text: The patient is free from signs and symptoms of injury caused by extraneous objects Skin Prep FT Pre-Care Text: Performs skin preparations Entry 1 Procedure PLANTAR FASCIA Prep Area LEFT FOOT AND ANKLE RELEASE(Left) Prep Agents Chloraprep/Dry Prior to Draping Hair Removal Methods Not Indicated By Tayler Gonsalez RN Outcomes Met? Yes Last Modified By: Tayler Gonsalez RN 09/20/17 08:30:55 Post-Care Text: The patient is free from signs and symptoms of infection Departure From OR FT Pre-Care Text: Transports according to individual needs. Evaluates for signs and symptoms of skin and tissue injury as a result of transfer or transport. Entry 1 Via Cart Safety Precautions Side Rails Up PostOp Destination PACU Transported By Tayler Gonsalez RN Patient Status Stable Skin. Condition Intact, [place], Warm, and Description SAME PRE OP Dry, Other/See Comments Airway Maintenance Oxygen in Use? Yes Airway Device Simple Mask Flow Rate 10 L/min Outcomes Met? Yes Last Modified By: Tayler Gonsalez RN 09/20/17 08:52:29 Post-Care Text: The patient is free from signs and symptoms of injury related to transfer/transport General Comments: REPORT GIVEN TO PACU NURSE. KIMBERLEY CHAVARRIA Dressing/Packing FT Pre-Care Text: Administers care to wound sites Entry 1 Type Dressing Items DRESSING KERLIX ROLL 4.5 X 4.1YD [6715][F] Site and Details LEFT FOOT: xeroform , Outcomes Met? Yes 4x4`s, kerlix roll, abd, and 4 inch ac Last Modified By: Tayler Gonsalez RN 09/20/17 08:35:51 Post-Care Text: The patient is free from signs and symptoms of infection Medication Administration FT Pre-Care Text: Verifies allergies, administers prescribed medications and solutions, administers prescribed antibiotic therapy and immunizing agents as ordered, evaluates response to medications Administers prescribed medications and solutions Entry 1 Expiration Date Yes Outcomes Met? Yes Verified Last Modified By: Tayler Gonsalez RN 09/20/17 07:13:53 Post-Care Text: The patient received appropriate medication(s) safely administered during the perioperative period For Rg-Yolo please see scanned medication reconcilliation form for medications used at the field during the procedure. Tourniquet FT Pre-Care Text: Implements protective measures to prevent skin/tissue injury due to mechanical sources Entry 1 Tourniquet Type TOURNIQUET CUFF RED 18 Setting 250 mmHg X 4 [[id number]][F] Equipment Number B Placement Left Ankle Padding Under Cuff Yes Applied By Kashif Yun DPM Applied Skin Assessment Unremarkable Skin Assessment Unremarkable Before Inflation After Inflation Tourniquet Times Inflated 09/20/17 08:32:00 Deflated 09/20/17 08:46:00 Total Time 14 minute(s) Outcomes Met? Yes Last Modified By: Tayler Gonsalez RN 09/20/17 08:47:04 Post-Care Text: The patient is free from signs and symptoms of injury caused by extraneous objects Temperature Control Entry 1 Temperature Control BLANKET MISTRAL AIR Quantity 1 Aid TORSO [QI7001-CT][F] Fluid/Leola Unit Mistral warming system Setting HIGH/43 DEGREES Body Site Upper anterior torso Last Modified By: Tayler Gonsalez RN 09/20/17 07:15:23 Case Comments Finalized By: Mar George CST Document Signatures Signed By: Tayler Gonsalez RN 09/20/17 08:52 Tayler Gonsalez RN 09/20/17 08:52 Mar George CST 09/21/17 09:[address] [facility] Inpatient Patient Summaryon 09-20-2017 [facility] Name: COOKIE OLIVER [facility] Admitting Physician: Kashif Yun DPMtenangelia Physician: Kashif Yun DPM PCP: Maged NIETO DO Diagnosis: Comment: PATIENT EDUCATION INFORMATIONInstructions:Brow n - Post Operative Instructions (Custom) (Custom)Medication Leaflets:Follow up:MEDICATION LISTComment: Normal [facility] Main OR PACU I Recordon Main OR PACU I Record PACU Phase I Document Type FT Summary Primary Physician: Kashif Yun DPM Finalized Date/Time: 09/20/17 09:28:18 Pt. Name: COOKIE OLIVER Anmol/Sex: 1985 Female Med Rec #: [id number] Physician: Kashif Yun DPM Financial #: [id number] Pt. Type: A Room/Bed: [place] [address] Admit/Disch: 09/20/17 06:31:46 - Institution: Case Times PACU I FT Pre-Care Text: Identifies barriers to communication and implements measures to provide psychological support Develops individualized plan of care, and ensures continuity of care Maintains patient's dignity and privacy, and maintains patient confidentiality Identifies and reports philosophical, cultural, and spiritual beliefs and values Identifies individual values and wishes concerning care Implements aseptic technique, and administers prescribed antibiotic therapy and immunizing agents as ordered Evaluates postoperative tissue perfusion Implements thermoregulation measures, and monitors body temperature Evaluates postoperative respiratory status Evaluates postoperative cardiac status Evaluates postoperative neurological status Assesses pain control, collaborated in initiating patient-controlled analgesia and implements alternative methods of pain control Verifies allergies, administers prescribed medications and solutions, evaluates response to medications Entry 1 In PACU I 09/20/17 08:50:00 Discharge from PACU 09/20/17 09:20:00 I Outcomes Met? Yes Last Modified By: Hu CHU, Christina Almaraz 09/20/17 09:28:08 Post-Care Text: The patient demonstrates knowledge of the expected response to the operative or invasive procedure The patient's care is consistent with the individualized perioperative plan of care The patient's right to privacy is maintained The patient's value system, lifestyle, ethnicity, and culture are considered, respected, and incorporated into the perioperative plan of care The patient participates in decisions affecting his or her perioperative plan of care The patient is free from signs and symptoms of infection The patient has wound/tissue perfusion consistent with or improved from baseline levels established preoperatively The patient is at or returning to normothermia at the conclusion of the immediate postoperative period The patient's respiratory function is consistent with or improved from baseline levels established preoperatively The patient's cardiovascular status is consistent with or improved from baseline levels established preoperatively The patient's cardiovascular status is consistent with or improved from baseline levels established preoperatively The patient demonstrates and/or reports adequate pain control throughout the perioperative period The patient received appropriate medication(s), safely administered during the perioperative period Acuity Level PACU I FT Entry 1 Start Time 09/20/17 08:50:00 Stop Time 09/20/17 09:20:00 Acuity Level Acuity Level I Last Modified By: Christina Lui RN 09/20/17 09:28:16 Finalized By: Christina Lui RN Document Signatures Signed By: Christina Lui RN 09/20/17 09:28 Normal [facility] Main OR PACU II Recordon Main OR PACU II Record PACU Phase II Document Type FT Summary Primary Physician: Kashif Yun DPM Finalized Date/Time: 09/20/17 10:43:45 Pt. Name: COOKIE OLIVER/Sex: 1985 Female Med Rec #: [id number] Physician: Kashif Yun DPM Financial #: [id number] Pt. Type: A Room/Bed: [place] [address] Admit/Disch: 09/20/17 06:31:46 - Institution: Case Times PACU II FT Pre-Care Text: Identifies barriers to communication and implements measures to provide psychological support and determines knowledge level Develops individualized plan of care, and ensures continuity of care Maintains patient's dignity and privacy, and maintains patient confidentiality Identifies and reports philosophical, cultural, and spiritual beliefs and values Identifies individual values and wishes concerning care administers prescribed antibiotic therapy and immunizing agents as ordered, Evaluates postoperative tissue perfusion Implements thermoregulation measures, and monitors body temperature Evaluates postoperative respiratory status Evaluates postoperative cardiac status Evaluates postoperative neurological status Assesses pain control, collaborated in initiating patient-controlled analgesia and implements alternative methods of pain control Verifies allergies, administers prescribed medications and solutions, evaluates response to medications Entry 1 In PACU II 09/20/17 09:20:00 Discharge from PACU 09/20/17 10:30:00 II Outcomes Met? Yes Last Modified By: Daphnie Rosas RN 09/20/17 10:43:42 Post-Care Text: The patient demonstrates knowledge of the expected response to the operative or invasive procedure The patient's care is consistent with the individualized perioperative plan of care The patient's right to privacy is maintained The patient's value system, lifestyle, ethnicity, and culture are considered, respected, and incorporated into the perioperative plan of care The patient participates in decisions affecting his or her perioperative plan of care. The patient is free from signs and symptoms of infection The patient has wound/tissue perfusion consistent with or improved from baseline levels established preoperatively The patient is at or returning to normothermia at the conclusion of the immediate postoperative period The patient's respiratory function is consistent with or improved from baseline levels established preoperatively The patient's cardiovascular status is consistent with or improved from baseline levels established preoperatively The patient's neurological status is consistent with or improved from baseline levels established preoperatively The patient demonstrates and/or reports adequate pain control throughout the perioperative period The patient received appropriate medication(s), safely administered during the perioperative period Finalized By: Daphnie Rosas RN Document Signatures Signed By: Daphnie Rosas RN 09/20/17 10:43 Normal [facility] Main OR Preoperative Recordo n 09-20-2017 Cholesterol mass conc PreOp Document Type FT Summary Primary Physician: Kashif Yun DPM Finalized Date/Time: 09/20/17 08:34:47 Pt. Name: COOKIE OLIVER/Sex: 1985 Female Med Rec #: [id number] Physician: Kashif Yun DPM Financial #: [id number] Pt. Type: A Room/Bed: [place] [address] Admit/Disch: 09/20/17 06:31:46 - Institution: Case Times PreOp FT Pre-Care Text: Verifies consent for planned procedure, identifies individual values and wishes concerning care, includes family members in perioperative teaching Entry 1 Patient Times. In Pre Surgery 09/20/17 06:30:00 Out Pre Surgery 09/20/17 08:18:00 Outcomes Met? Yes Last Modified By: Tayler Gonsalez RN 09/20/17 08:34:45 Post-Care Text: The patient participates in decisions affecting his or her perioperative plan of care Finalized By: Tayler Gonsalez RN Document Signatures Signed By: Tayler Gonsalez RN 09/20/17 08:34 Normal [facility] Operative Reporton 8 Operative Report Date of Surgery: 09/20/2017SURGEON: Kashif Yun D.P.M.PREOPERATIVE DIAGNOSIS: Left plantar fasciitisPOSTOPERATIVE DIAGNOSIS: Left plantar fasciitisOPERATION: Left instep plantar fasciotomy with division of muscle andfasciaANESTHESIA: GeneralHEMOSTASIS: 250 mm. of Hg., left ankle tourniquet, for 16 minutesESTIMATED BLOOD LOSS: NoneMATERIALS: 3-0 ProleneINJECTABLES: 10 cc. of 0.5% Sensorcaine plainPROCEDURE AND DETAIL: The patient was brought into the Operating Room andplaced on the Operating Room table in a supine position. Ankle tourniquetwas then placed around the patient's left ankle. Following I.V. sedationthe foot was scrubbed, prepped and draped in the usual sterile manner. AnEsmarch bandage was then utilized to exsanguinate the patient's left footand the tourniquet was inflated to 250 mm. of Hg. for a total of 16minutes. Attention was then directed to the plantar instep region of theleft foot where a transverse incision was made over the plantar fascialband. The incision was deepened through the subcutaneous tissues usingsharp and blunt dissection with care being taken to identify and retractall vital neurovascular structures. All bleeders were ligated andcauterized as necessary. At this time the plantar fascial band wasvisualized and a sharp 15 blade was used to transect the band medially andlaterally, thus transecting two-thirds of the band and leaving the lateralone-third of the plantar fascial band intact. The wound was then flushedwith copious amounts of sterile Normal Saline. The skin was reapproximatedand coapted utilizing 3-0 Prolene in a vertical mattress suture technique,and upon completion of the procedure a total of 10 cc. of 0.5% Sensorcaineplain was injected into the postoperative site. The tourniquet was thendeflated and prompt hyperemic response was noted to the left foot, and asterile compressive dressing consisting of Xeroform, 44x, abdominal pad,Kerlix and Chente wrap was applied. The patient tolerated the anesthesia andthe procedure well, and left the Operating Room for recovery with vitalsigns stable and neurovascular status intact in digits one through five ofthe left foot, and when stable she will be discharged home on the followingoral and written postoperative instructions:1. Keep dressing dry and intact.2. The patient to remain non-weight bearing on the left foot.3. The patient was given Dr. Yun's postoperative care sheet incontinenceoffice and hospital number if any problems should arise. Otherwise sanya return to the Clinic in one week for her first postoperativevisit.Kashif Yun D.P.M.aekDictated: 09/20/2017 #[id number]: 09/20/2017 #[id number]: Kashif Yun D.P.M. [facility] Comment on above: Result Comment: Elec tronically Signed By: Jama GREEN, Kashif Cardenas\.br\Date and Time Signed: 09/20/17 09:58 EDT Patient Education - Texton 0 09-20-2017 Cholesterol mass conc [place], [place] Albertoday[facility] hospitalmike Yun DPM, FACFASPOST OPERATIVE INSTRUCTIONSKeep bandage clean and dry and DO NOT REMOVEKeep foot elevated on blue foam pillowApply ice to top of ankle, one hour on one hour off, until first office visitno weight to post operative footTake pain medications as directedDo not be alarmed if you notice slight bleeding on the bandage, this is normalResume regular diet.Call the office if you develop:persistent bleedingtemperature above 100 degreespersistent vomitingcalf pain or shortness of breathredness or pus at operative siteCall the office tomorrow for 1st post-operative dressing change appointment.If you have any problems or questions, feel free to call the doctor at:[phone] or [phone] Yun paged. Patient signature Date ____ Dr. Kashif Yun DPM, FACFAS Date Revised: 03-[address] [facility] Progress Note-Physicianon Protein mass conc Patient: Anette OLIVER Age: 32 years Sex: Female : 1985 Associated Diagnoses: None Author: Kashif Yun DPM Postoperative Information Procedure: left instep plantar fasciotomy with division of fascia and muscle Date/ Time: 09/20/17 08:56:00 Preoperative Diagnosis: left plantar fascitis. Postoperative Diagnosis: courtney. Performed by: Kashif Yun DPM. Estimated Blood Loss: 0 ml. Complications: None. Anesthesia type: General. Normal [facility] Comment on above: Result Comment: Elec tronically Signed By: Kashif Yun DPM\.br\Date and Time Signed: 09/20/17 08:57 EDT Coding Summary.on 09-19-2017 Coding Summary. CODING DATE: 018 FINAL [facility] STATUS: Home (Routine DC) PAYOR: Brandon ADMIT DX: REASON FOR VISIT DX: Z01.812 Encounter for preprocedural laboratory examination FINAL DX: PRINCIPAL: Z01.812 Encounter for preprocedural laboratory examination SECONDARY: Z01.818 Encounter for other preprocedural examination PROCEDURES DOCTOR NAME DATE NOTE: The code number assigned matches the documented diagnosis and / or procedure in the patient's chart. However, the narrative phrase printed from the coding software may appear abbreviated, or result in slightly different terminology. Coded By: Sandra Rivas Date Saved: 09/19/2017 08:43 am Normal [facility] CBC w/Indiceson 09-15-2017 Erythrocyte distribution width Auto Ratio (RBC) 13.8 % Normal 10.9-14.2 [facility] Comment on above: Performed By: #### 2 [id number] ####[facility] [id number] [place] [address] Hematocrit Auto Volume Fraction (Bld) 38.8 % Normal 34.0-46.0 [facility] Comment on above: Performed By: #### 2 [id number] ####[facility] [id number] [place] [address] Hemoglobin mass conc (Bld) 13.3 g/dL Normal 12.0-16.0 [facility] Comment on above: Performed By: #### 2 [id number] ####[id number] [place] [address] MCH Auto Entitic mass (RBC) 30.0 pg Normal 27.0-34.0 [facility] Comment on above: Performed By: #### 2 [id number] ####[address] [address] MCHC Auto mass conc (RBC) 34.2 g/dL Normal 31.4-39.3 [facility] Comment on above: Performed By: #### 2 [id number] ####[address] [address] MCV Auto Entitic volume (RBC) 87.7 fL Normal 80.0-100.0 [facility] Comment on above: Performed By: #### 2 [id number] ####[address] [address] Platelet mean volume Auto Entitic volume (Bld) 8.1 fL Normal 6.4-10.8 [facility] Comment on above: Performed By: #### 2 [id number] ####[address] [address] Platelets Auto #/vol (Bld) 320.0 E9/L Normal 150.0-500.0 [facility] Comment on above: Performed By: #### 2 [id number] ####[address] [address] RBC Auto #/vol (Bld) 4.4 E12/L Normal 4.3-5.9 [facility] Comment on above: Performed By: #### 2 [id number] ####[address] [address] WBC corrected for nucl RBC Auto #/vol (Bld) 8.7 E9/L Normal 4.0-11.0 [facility] Comment on above: Performed By: #### 2 [id number] ####[address] [address] U BetaHcg Qualon 09-15-2017 HCG.beta subunit molar conc (U) Negative Normal [facility] Comment on above: Performed By: #### 2 [id number] ####[facility] [id number] [place] [address] Encounters Encounter Date Encounter Type Care Provider Facility Start: 06-05-2023 End: 06-05-2023 ambulatory [facility] Work Phone: Start: 06-05-2023 End: 06-05-2023 Patient encounter procedure [facility] Work Phone: Start: 04-13-2023 Non-patient / Non-visit [facility] Work Phone: Start: 03-22-2023 End: 03-22-2023 ambulatory Diego Nieto Other [employer] Other Start: 03-22-2023 Office outpatient vi sit 15 minutes Diego Nieto [facility] Start: 09-12-2022 End: 09-12-2022 ambulatory Diego Nieto Other [employer] Other Start: 09-12-2022 Office outpatient vi sit 15 minutes Diego Nieto [facility] Start: 02-13-2022 End: 02-14-[address] DIEGO NIETO Facility:[facility] Start: 01-26-2022 End: 02-12-[address] DIEGO NIETO Facility:[facility] Start: 05-06-2021 Encounter for genera l adult medical examination without abnormal findings DR DIEGO NIETO [facility] Start: 05-03-2021 Adult health examination Solo mary Nieto Other [employer] Other Start: 05-03-2021 End: 05-04-[address] DIEGO NIETO Facility:[facility] Start: 05-03-2021 End: 05-04-2021 Encounter for general adult medical examination without abnormal findings DR DIEGO NIETO Facility:[facility] Start: 04-11-2019 Gynecological examin ation normal Diego Nieto Other [employer] Other Start: 09-20-2017 End: 09-20-2017 Patient encounter Kashif Yun Facility[facility] Start: 09-15-2017 End: 09-16-2017 Patient encounter Kashif Yun Facility:[facility] Start: 08-20-2017 End: 08-20-2017 Emergency department patient visit Diego Nieto Facility:[facility] Procedures Date Procedure Procedure Detail Performing Clinician Start: 09-18-2017 Pre-surgery evaluation Diego Nieto Other Start: 01-20-2017 General examination of patient Diego Nieto Other Start: 04-10-2008 Contraception care education Diego Niteo Other Depression screening Donald Nieto Other Payers Date Payer Category Payer Self-pay 1985 Unknown [id number] 2.16.84 [id number] 1985 Unknown [id number] 2.16.84 [id number] 1985 Unknown [id number] [id number] [id number] 1960 Unknown [id number] Medicaid [id number] 2. [id number] Medicaid [employer] [id number] Unknown [id number] 2.16.84 [id number] Social History Date Type Detail Facility Sex Assigned At [employer] Other Start: 08-20-2017 Tobacco smoking stat us ORIS Never smoked tobacco (finding) [facility] Start: 1985 Sex Assigned At Female F [facility] Evaluation note 03-22-2023 Note Date & Type Note Facility 03-22-2023 Evaluation note Encounter Date Diagnosis Assessment Notes Mar, COVID-19 (ICD-10 - U07.1) Instructed to use Robitussin or Mucinex for cough, saline or Flonase NS for congestion, Tylenol for pain and fever. Self isolate at home. - Cannot work - avoid contact with others - avoid pets - wipe counters, door knobs if touched - if can't avoid leaving home, must wear mask to protect others - need to stay isolated for 10 days from onset of symptoms - to discontinue isolation must be 5 days AND must be without fever for 24 hours AND symptoms must be improving. Always wear a mask in public places for complete 10 days ER for chest pain or increased dyspnea Mar, Essential hypertension (ICD-10 - I10) This patient is instructed to consume a healthy, low-fat, low-salt diet. They are also encouraged to continue exercise to achieve/mainta in a normal BMI. [employer] Other Evaluation note 09-12-2022 Note Date & Type Note Facility 09-12-2022 Evaluation note Encounter Date Diagnosis Assessment Notes Aug, Acute bronchitis due to other specified organisms (ICD-10 - J20.8) Instructed to use Robitussin or Mucinex for cough, saline or Flonase NS for congestion, Tylenol for pain and fever. ER for worsening chest tightness and SOB. Call if no improvement for IP visit [employer] Other History general Narrative - Reported 09-12-2022 Note Date & Type Note Facility 09-12-2022 History general N arrative - Reported Type Medical History Problem Title : Adul t BMI between 22 kg/m2 and 30 kg/m2, Problem Description : Adult BMI between 22 kg/m2 and 30 kg/m2, Problem Comment : 0~0~0, Problem Status : Active,, Medical History Problem Title : Adul t BMI greater than or equal to 30 kg/m2, Problem Description : Adult BMI greater than or equal to 30 kg/m2, Problem Comment : 0~1~0, Problem Status : Active,, Medical History Problem Title : Adul t BMI less than 22 kg/m2, Problem Description : Adult BMI less than 22 kg/m2, Problem Comment : 0~0~0, Problem Status : Active,, Medical History Problem Title : Chil d BMI less than 18.5 kg/m2, Problem Description : Child BMI less than 18.5 kg/m2, Problem Comment : 0~1~0, Problem Status : Active,, Medical History Problem Title : comp liance with medical treatment, Problem Description : compliance with medical treatment, Problem Comment : Done, Problem Status : Active,, Medical History Problem Title : Depr ession Screening, Problem Description : Depression Screening, Problem Comment : Negative, Problem Status : Active,, Medical History Problem Title : MEDI SUZY: Depression, Problem Status : Active,, Medical History Problem Title : no k nown problems, Problem Description : no known problems, Problem Comment : F, Problem Status : Active,, Medical History Problem Title : past medical history E&M, Problem Description : past medical history E&M, Problem Comment : obese, Problem Status : Active,, Medical History Problem Title : past medical history reviewed, Problem Description : past medical history reviewed, Problem Comment : reviewed - no changes required, Problem Status : Active,, Medical History Problem Title : PHQ2 Questionairre Score, Problem Description : PHQ2 Questionairre Score, Problem Comment : 0, Problem Status : Active,, Medical History Problem Title : PHQ9 Question One score, Problem Description : PHQ9 Question One score, Problem Comment : 0, Problem Status : Active,, Medical History Problem Title : PHQ9 Question Two score, Problem Description : PHQ9 Question Two score, Problem Comment : 0, Problem Status : Active,, Medical History Problem Title : Plan for BMI Management Documented, Problem Description : Plan for BMI Management Documented, Problem Comment : documented follow-up plan, Problem Status : Active,, Medical History Problem Title : psyc hiatric examination, comments, Problem Description : psychiatric examination, comments, Problem Comment : alert and cooperative; normal mood and affect; normal attention span and concentration. , Problem Status : Active,, Medical History Problem Title : COSTA SFUSION HISTORY: No history of receiving blood or blood product transfusion(s), Problem Status : Active,, Medical History Problem Title : very low density lipoproteins, Problem Description : very low density lipoproteins, Problem Comment : 12.0, Problem Status : Active,, Surgical History Problem Title : No p revious surgery, Problem Status : Inactive, Surgical History Problem Title : past surgical history reviewed, Problem Description : past surgical history reviewed, Problem Comment : reviewed - no changes required, Problem Status : Inactive, Surgical History Problem Title : surg ical procedures, hx of, Problem Description : surgical procedures, hx of, Problem Comment : x 1 Plantar Fasciitis 09/2017, Problem Status : Active, Surgical History Problem Title : surg ical procedures, hx of, Problem Description : surgical procedures, hx of, Problem Comment : x 1, Problem Status : Inactive, Surgical History Problem Title : surg ical procedures, hx of, Problem Description : surgical procedures, hx of, Problem Comment : , Problem Status : Inactive, [employer] Other Evaluation note Note Date & Type Note Facility Evaluation note Diagnosis Onset Date Bronchitis acute Chest congestion acute Fever acute [facility] Work Phone: History general Narrative - Reported Note Date & Type Note Facility History general Narrative - Reported Type Medical History Essential hypertension Medical History Occipital headache Medical History SHADE (generalized anxiety disorde r) Medical History Meralgia paresthetic a, unspecified laterality Medical History Suspected sleep apnea Medical History Daytime hypersomnia Medical History Bilateral carpal tunnel syndrome Medical History Bronchitis Surgical History x 1 Plantar Fasciitis 09/2017 Hospitalization History see surgical history [facility] Other Summary Purpose Family History No Family History Records FoundNo Family History Records FoundNo Family History Records Found Advance Directives Advance Directive Response Recorded Date/ Time Advance Directives No August 20 8 6:56pm Chief Complaint and Reason for Visit Chief Complaint congestion, cough Reason for Visit Bronchitis Chest congestion Fever Additional Source Comments INFORMATION SOURCE (unrecogn ized section and content) DATE CREATED AUTHOR [facility]07/2017 [facility] DATE CREATED AUTHOR AUTHOR'S ORGANIZ ATION 05/28/2018 [facility] DATE CREATED AUTHOR AUTHOR'S ORGANIZ ATION 04/06/2022 [facility] REASON FOR VISIT (unrecogniz ed section and content) [phone], Congesti on, SOBSinuses, Body Aches, Congestion- Testing for [phone] Care Teams (unrecognized sec tion and content) Team Status: Active Member Role Status Dates Diego Nieto DO Primary Care Provider Active Team Status: Active Member Role Status Dates Diego Nieto DO Primary Care Provide r, Attending Provider Active Start: April 13, 2023 Team Status: Inactive Member Role Status Dates Diego Nieto DO Primary Care Provider Active Start: June 05, 2023 End: June 05, 2023 Mar Su APRN [employer]IST-C Attending Provider Act shadi Start: June 05, 2023 End: June 05, 2023 Goals (unrecognized section and content) Goals may be documented in a n alternate section FOR RECORDS PERTAINING TO PATIENTS WHO ARE OR HAVE BEEN ENROLLED IN A CHEMICAL DEPENDENCY/SUBSTANCEABUSE PROGRAM, SOME INFORMATION MAY BE OMITTED. This clinical summary was aggregated from multiple sources. Caution should be exercised in using it in the provision of clinical care. This summary normalizes information from multiple sources, and as a consequence, information in this document may materially change the coding, format and clinical context of patient data. In addition, data may be omitted in some cases. CLINICAL DECISIONS SHOULD BE BASED ON THE PRIMARY CLINICAL RECORDS. [facility]. provides no warranty or guarantee of the accuracy or completeness of information in this document.
[2023-08-31 21:28] VITALS: BP 161/111; PULSE 81; TEMP 36.8; O2SAT 97; BMI 52.4
--- NOTE | 2023-08-31 21:34 | XR_ITS ---
The [address] [address] Patient Name: COOKIE OLIVER MRN: [id number] date: 1985 Sex: F Assigned Patient Location: ED.MAIN Current Patient Location: ER Accession/Order Number: [id number] Exam Date: 08/31/2023 21:40 Report Date: 08/31/2023 23:10 At the request of: RAMA KHAN Procedure: XR knee LT 3V EXAM: XR knee LT 3V HISTORY: knee pain COMPARISON: None. TECHNIQUE: 3 views of the left knee were obtained. FINDINGS: No definite acute fracture or dislocation is seen. There is a linear lucency at the medial base of the medial tibial spine that is felt less likely to represent an acute fracture. There are mild degenerative changes. There is no significant left knee joint effusion. There is prepatellar soft tissue edema. XR/XR knee LT 3V IMPRESSION: 1. Left knee prepatellar soft tissue edema. 2. There is a linear lucency at the medial base of the medial tibial spine that is felt less likely to represent an acute fracture. Electronically authenticated by: Anette PASCAL Date: 08/31/2023 23:10
--- NOTE | 2023-08-31 21:35 | ED.LOWEXI1 ---
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 Noticed discomfort of the knee but wasn't clear what it was. Pulled her pants leg up and noticed the knee was swollen. no fever. Knee feels tight. Related Data Home Medications ?Medication ?Instructions ?Recorded ?Confirmed No Known Home Medications 08/31/23 08/31/23 Allergies Allergy/AdvReac Type Severity Reaction Status Date / Time Sulfa (Sulfonamide Allergy Severe Hives Verified 08/31/23 21:28 Antibiotics) Opioid HPI Opioid Management Most Recent Pain and Opioid Data: Last Pain Scale 6 04/13/23 08:51 Review of Systems ROS Status of ROS 10 or more systems reviewed and unremarkable except as noted in history and below PFSH [facility] Medical History (Updated 08/31/23 @ 23:22 by Chinedu Gallegos MD) No pertinent past medical history ?Z78.9 - Other specified health status (ICD-10) No pertinent past psychiatric history Surgical History (Updated 04/13/23 @ 08:54 by Ovidio Jerry) History of ?Z98.891 - History of uterine scar from previous surgery (ICD-10) Social History Smoking status: Never smoker Exam Constitutional Vital Signs, click to edit/add: Last Vital Signs Temp 98.3 F 08/31/23 21:28 Pulse 81 08/31/23 21:28 Resp 16 08/31/23 21:28 BP 161/111 H 08/31/23 21:28 Pulse Ox 97 08/31/23 21:28 O2 Del Method Room Air 08/31/23 21:28 Common normals: no apparent distress, average body habitus, oriented x3, no limitations, healthy appearing, alert and well nourished [facility] Common normals: normocephalic and head/scalp atraumatic Eye Common normals: PERRL and EOMs intact bilaterally Respiratory Common normals: normal respiratory effort, no retractions, no use of accessory muscles and clear to auscultation bilaterally Cardio Common normals: regular rate, regular rhythm, S1 normal heart sound and S2 normal heart sound Extremity Other: effusion overlying patella. no erythema or warm. tender Neuro Common normals: oriented x3, CN's II-XII intact bilaterally, moves all extremities and no focal motor deficits Psych Appearance: grossly normal Course Vital Signs Vital signs: Vital Signs Temperature 98.3 F 08/31/23 21:28 Pulse Rate 81 08/31/23 21:28 Respiratory Rate 16 08/31/23 21:28 Blood Pressure 161/111 H 08/31/23 21:28 Pulse Oximetry 97 08/31/23 21:28 Oxygen Delivery Method Room Air 08/31/23 21:28 Temperature 98.3 F 08/31/23 21:28 Pulse Rate 81 08/31/23 21:28 Respiratory Rate 16 08/31/23 21:28 Blood Pressure 161/111 H 08/31/23 21:28 Pulse Oximetry 97 08/31/23 21:28 Oxygen Delivery Method Room Air 08/31/23 21:28 MDM - Extremity Injury (Lower) MDM Narrative Medical decision making narrative: injury to left knee. Not sure how she injured it. Was working on her knees and could have pressed the knee on something causing the delayed response but is not sure. Has focal swelling overlying the patella. focal effusion. No redness or warmth. no findings to support insect bite. Site is tender. Xray ? underlying lucency fracture but does not connect clinically. Patient treated with prednisone and placed in a knee immobilizer and advised to follow up with her doctor for recheck Discharge Plan Discharge Stand Alone Forms: Portal Instructions Chief Complaint: Extremity Injury, Lower Clinical Impression: Contusion of knee Patient Disposition: Home, Self-Care Prescriptions / Home Meds: No Action No Known Home Medications Print Language: Nepali Instructions: Contusion in Adults (ED) Additional Instructions: follow up with Dr Nieto in the next few days for recheck Referrals: Diego Nieto DO [Primary Care Provider] - 1 week
[2023-08-31] MEDS: METHYLPREDNISOLONE SOD SUCC PF 125 MG/2 ML VIAL IM (21:50)
--- NOTE | 2023-08-31 21:55 | PC.NURSE ---
Patient was kneeling on floor doing work, now reports pain and swelling to left knee. Left knee skin pink and warm and pulses present.
== END 2023-08-31 23:47 | disposition home or self-care (01) ==
PROVIDERS: Emergency Provider Internal Medicine; PCP Internal Medicine
DX: S80.02XA Contusion of left knee, initial encounter (principal); X58.XXXA Exposure to other specified factors, initial encounter
CPT/HCPCS: 73562; 96372; 99284; J2919

== ENCOUNTER 2024-05-19 21:43 | Emergency (ER) | payer MEDICAID, SELFPAY ==
[2024-05-19 21:48] VITALS: PULSE 88; TEMP 36.7; O2SAT 98; BMI 49.8
--- OUTSIDE RECORDS SUMMARY | 2024-05-19 21:48 | XMS_ITS | CCD ---
Author Organization [facility] Care Team Providers Care Appliance Tester Name Role Phone Kashif Yun Unavailable Unavailable Jama, Kashif Theresa Unavailable Unavailable Kelechi Yunolas A Unavailable Unavailable BALL, [phone] UNKNOWN Unavailable Unavailable Brown, Kashif A Unavailable Unavailable Brown, Kashif A Unavailable Unavailable Brown, Kashif A Unavailable Unavailable BALL, DIEGO~[phone] UNKNOWN Unavailable Unavailable Ball, Diego Primary Care Unavailable Shahideh, Amicrystal Admitting Unavailable Shahideh, Cricket Attending Unavailable BALL, [...] source) sulfamethoxazole; Translations: [sulfamethoxazole ] Drug Allergy [facility] Repository (1 source) No Known Allergies; Translations: [No Known Allergies] Propensity to adverse reactions (disorder) [facility] Repository (1 source) Sulfonamides (Antibiotic) Drug allergy (disorder) 08-21-19 [facility] Repository (1 source) Sulfonamides (Antibiotic) Drug allergy (disorder) 10-12-19 13 [facility] Repository (1 source) patient allergy list reviewed by nurse or physicia Propensity to adverse reactions 04-24-19 Comment:Done [facility] Other (2 sources) Substance with sulfonamide structure and antibacterial mechanism of action (substance) Drug allergy Unknown [facility] Other Medications Current Medications Medication Drug Class(es) Dates Sig (Normalized) Sig (Original) amoxicillin 875 mg oral tablet (1 source) Penicillin-class Antibacterial Start: 04-09-2024 take 1 tablet by mouth twice daily Amoxicillin 875 mg tablet Active 875 MG PO Twice daily 14 April 09, 2024 12:00am azithromycin 250 mg oral tablet (8 sources) Macrolide Antimicrobial Start: 06-05-2023 End: 12-22-2023 Azithromycin 250 mg tablet Active 0 PO daily 6 December 22, 2023 12:00am Take 2 on day 1 and then take 1 for the next 4 days (days 2-5) Start: 09-12-2022 Azithromycin 2 50 MG as directed Orally daily for 5 days Dec, Active benzonatate 200 mg oral capsule (2 sources) Non-narcotic Antitussive Start: 12-22-2023 take 1 capsule by mouth three times daily as needed for cough Benzonatate 200 mg capsule Active 200 MG PO Three times daily as needed for cough 12 12December 22, 2023 12:00am cyclobenzaprine hydrochloride 5 mg oral tablet (1 source) Muscle Relaxant Start: 01-19-2022 take 1 tablet by mouth once at bedtime cyclobenzaprine 5mg cyclobenzaprine 5mg, 1 (one) tablet q HS # 30, 01/19/2022, No Refill. Active oral q HS for 30 *Reorder from [employer] for eRx and Interaction Alerts* Jan, Active lisinopril 5 mg oral tablet (5 sources) Angiotensin Converting Enzyme Inhibitor Start: 06-05-2023 take 1 tablet by mouth once daily Lisinopril 5 mg tablet Active 5 MG PO Daily June 04, 2023 11:00pm Start: 11-29-2021 take 1 tablet by kaylyn th once daily Lisinopril 5 MG lisinopriL 5mg, 1 (one) Tablet daily # 30, 11/29/2021, Ref. x11. Active Oral daily for 30 Nov, Active sertraline 100 mg oral tablet (5 sources) Serotonin Reuptake Inhibitor Start: 06-05-2023 take 1 tablet by mouth once daily Sertraline 100 mg tablet Active 100 MG PO Daily June 04, 2023 11:00pm Start: 12-14-2021 sertraline 100 mg sertraline 100mg, 1 (one and a half) Tablet q HS # 30, 12/14/2021, Ref. x5. Active oral q HS for 0 *Reorder from [employer] for eRx and Interaction Alerts* Dec, Active Completed/Discontinued Medications Medication Drug Class(es) Dates Sig (Normalized) Sig (Original) cephalexin 500 mg oral capsule (3 sources) Cephalosporin Antibacterial Start: 08-20-2017 End: 08-30-2017 take 1 g by mouth twice daily Cephalexin (Keflex) 500 mg capsule Discontinued 1 GM PO Twice daily 40 10 August 19, 2017 11:00pm August 28, 2017 11:00pm August 29, 2017 11:01pm Problems Active Problems Problem Classification Problem Date Documented Date Episodic/Chronic Acute bronchitis (1 source) Acute bronchitis due to other specified organisms Episodic Anxiety disorders (2 sources) Generalized anxiety disorder; Translations: [Generalized anxiety disorder] Chronic Chronic obstructive pulmonary disease and bronchiectasis (6 sources) Bronchitis; Translations: [Bronchitis, not specified as acute or chronic] 06-05-2023 Episodic Essential hypertension (3 sources) Essential hypertension; Translations: [Essential (primary) hypertension] Chronic Fever of unknown origin (4 sources) Fever; Translations: [Fever, unspecified] 06-05-2023 Episodic Headache; including migraine (1 source) Headache; Translations: [Headache, unspecified] Episodic Headache; including migraine (5 sources) Headache; including migraine; Translations: [HEADACHE UNSPECIFIED] Onset: 01-30-2022 Menstrual disorders (2 sources) Light and infrequent menstruation; Translations: [Scanty or infrequent menstruation] Onset: 04-10-2008 Chronic Miscellaneous mental health disorders (1 source) Occipital headache; Translations: [Occipital headache] Chronic Other circulatory disease (3 sources) Pulmonary congestion ; Translations: [Other specified symptoms [...] mass index 35.0-35.9, adult] Onset: 04-23-2018 Chronic Other upper respiratory disease (1 source) Other specified disorders of nose and nasal sinuses; Translations: [Other disease of nasal cavity and sinuses] 04-09-2024 Episodic Other upper respiratory infections (2 sources) Acute maxillary sinusitis; Translations: [Acute maxillary sinusitis, unspecified] Onset: 04-23-2018 04-09-2024 Episodic Residual codes; unclassified (1 source) Hypersomnia; Translations: [...] fascial fibromatosis] Onset: 09-12-2013 Resolved: 01-26-2021 Episodic Pneumonia (except that caused by tuberculosis [...] sed) [#/Area] RARE #/LPF NONE/RARE [facility] Automated leukocytes count i n urine sediment (number/area)on 04-13-2023 WBC Auto (Urine sed) [#/Area] 0-2 #/HPF 0-2 [facility] Automated urine specific gra vity by refractometryon 04-13-2023 Specific gravity Refractometry automated (U) [Rel density] 1.010 1.005-1.025 [facility] Bilirubin Auto test strip (U ) [Mass/Vol]on 04-13-2023 Bilirubin (U) [Mass/Vol] Negative NEGATIVE [facility] Casts typing in urine sedime nt by light microscopyon 04-13-2023 Casts LM Nom (Urine sed) NONE SEEN #/LPF NONE SEEN [facility] Color Auto (U)on 04-13-2023 Color (U) LT. YELLOW YELLOW [facility] Ketones Auto test strip (U) [Mass/Vol]on 04-13-2023 Ketones (U) [Mass/Vol] Negative NEGATIVE [facility] Mucus LM Ql (Urine sed)on Mucus Ql (Urine sed) NONE SEEN NONE SEEN [facility] No Panel Informationon Urine Culture Reflexed NO [facility] Urine Microscopic Review YES [facility] Protein Auto test strip (U) [Mass/Vol]on 04-13-2023 Protein (U) [Mass/Vol] Negative NEG/TRACE [facility] Specific gravity Auto test s trip (U) [Rel density]on 04-13-2023 Specific gravity (U) [Rel density] CLEAR CLEAR [facility] Urine bacteria detection by automated methodon 04-13-2023 Bacteria Auto Ql (U) NONE SEEN #/HPF NONE SEEN [facility] Urine glucose measurement by test strip (mass/volume)on 04-13-2023 Glucose Test strip (U) [Mass/Vol] Negative NEGATIVE [facility] Urine hemoglobin detection b y automated test stripon 04-13-2023 Hemoglobin Auto test strip Ql (U) TRACE-I NEGATIVE [facility] Urine nitrite detection by a utomated test stripon 04-13-2023 Nitrite Auto test strip Ql (U) Negative NEGATIVE [facility] Urine sediment crystal ident ification by light microscopyon 04-13-2023 Crystals LM Nom (Urine sed) None Seen #/HPF None Seen [facility] Urine sediment leukocyte cou nt by microscopy (number/high power field)on 04-13-2023 WBC LM.HPF (Urine sed) [#/Area] 0-2 #/HPF NONE SEEN [facility] Urobilinogen Auto test strip (U) [Mass/Vol]on 04-13-2023 Urobilinogen Qn (U) 0.2 {Esthela'U}/dL 0.2-1.0 [facility] pH Auto test strip (U)on pH (U) 6.5 [pH] 5.0-9.0 [facility] CBC AUTO DIFFon 05-03-2021 BASO # 0.0 103/ul Normal 0.0-0.1 [facility] Comment on above: Performed By: #### C BC #### [facility] [address] [address] [address] Antonio Goldberg Basophils/100 WBC (Bld) 0.4 % Normal 0.2-2.0 [facility] Comment on above: Performed By: #### C BC #### [facility] [address] [address] [address] Antonio Goldberg EO # 0.1 103/ul Normal 0.0-0.7 [facility] Comment on above: Performed By: #### C BC #### [facility] [address] [place] [address] Dr. Antonio Goldberg Eosinophils/100 WBC (Bld) 1.8 % Normal 0.9-7.0 [facility] Comment on above: Performed By: #### C BC #### [facility] [address] [place] [address] Dr. Antonio Goldberg Erythrocyte distribution width (RBC) [Ratio] 13.7 % Normal 11.0-15.0 [facility] Comment on above: Performed By: #### C BC #### [facility] [address] [place] [address] Dr. Antonio Goldberg Hematocrit (Bld) [Volume fraction] 42.1 % Normal 36.0-48.0 [facility] Comment on above: Performed By: #### C BC #### [facility] [address] [place] [address] Dr. Antonio Goldberg Hemoglobin (Bld) [Mass/Vol] 13.7 g/dL Normal 12.0-16.0 [facility] Comment on above: Performed By: #### C BC #### [facility] [address] [place] [address] Dr. Antonio Goldberg IG # 0.02 10e3/ul Normal 0.00-0.03 [facility] Comment on above: Performed By: #### C BC #### [facility] [address] [place] [address] Dr. Antonio Goldberg IG % 0.3 % Normal 0.0-0.5 [facility] Comment on above: Performed By: #### C BC #### [facility] [address] [place] [address] Dr. Antonio Goldberg LYMPH # 1.8 103/ul Normal 1.2-3.8 [facility] Comment on above: Performed By: #### C BC #### [facility] [address] [place] [address] Dr. Antonio Goldberg Lymphocytes/100 WBC (Bld) 26.0 % Normal 20.5-60.0 [facility] Comment on above: Performed By: #### C BC #### [facility] [address] [place] [address] Dr. Antonio Goldberg MANUAL DIFF REQ NO Normal [facility] Comment on above: Performed By: #### C BC #### [facility] [address] [place] [address] Dr. Antonio Goldberg MCH (RBC) [Entitic mass] 29.3 pg Normal 26.7-34.0 [facility] Comment on above: Performed By: #### C BC #### [facility] [address] [place] [address] Dr. Antonio Goldberg MCHC (RBC) [Mass/Vol] 32.5 g/dL Normal 29.9-35.2 [facility] Comment on above: Performed By: #### C BC #### [facility] [address] [place] [address] Dr. Antonio Goldberg MCV (RBC) [Entitic vol] 90.0 fL Normal 81.0-99.0 [facility] Comment on above: Performed By: #### C BC #### [facility] [address] [place] [address] Dr. Antonio Goldberg MONO # 0.4 103/ul Normal 0.3-0.8 [facility] Comment on above: Performed By: #### C BC #### [facility] [address] [place] [address] Dr. Antonio Goldberg Monocytes/100 WBC (Bld) 5.3 % Normal 1.7-12.0 [facility] Comment on above: Performed By: #### C BC #### [facility] [address] [place] [address] Dr. Antonio Goldberg NEUT # 4.7 103/ul Normal 1.4-6.5 [facility] Comment on above: Performed By: #### C BC #### [facility] [address] [address] [address] Antonio Goldberg Neutrophils/100 WBC (Bld) 66.2 % Normal 43.0-75.0 [facility] Comment on above: Performed By: #### C BC #### [facility] [address] [place] [address] Dr. Antonio Goldberg Platelet mean volume (Bld) [Entitic vol] 9.3 fL Critically low 9.5-13.5 [facility] Comment on above: Performed By: #### C BC #### [facility] [address] [place] [address] Dr. Antonio Goldberg PLT 318 103/ul Normal 150-450 [facility] Comment on above: Performed By: #### C BC #### [facility] [address] [place] [address] Dr. Antonio Goldberg RBC 4.68 106/ul Normal 4.20-5.40 [facility] Comment on above: Performed By: #### C BC #### [facility] [address] [place] [address] Dr. Antonio Goldberg WBC 7.0 103/ul Normal 4.0-11.0 [facility] Comment on above: Performed By: #### C BC #### [facility] [address] [place] [address] Dr. Antonio Goldberg LIPID PROFILEon 05-03-2021 CHOL-HDL RATIO NORM SEE BELOW Normal [facility] Comment on above: Result Comment: 3.3 - 4.4 LOW RISK 4.4 - 7.1 AVERAGE RISK 7.1 - 11.0 MODERATE RISK >11.0 HIGH RISK Performed By: #### L IPID, TSH, CMP #### [facility] [address] [place] [address] Dr. Antonio Goldberg Cholesterol [Mass/Vol] 210 mg/dL Critically high <=200 [facility] Comment on above: Performed By: #### L IPID, TSH, CMP #### [facility] [address] [address] [address] Antonio Goldberg Cholesterol in HDL [Mass/Vol] 62 mg/dL Critically high 40-60 [facility] Comment on above: Performed By: #### L IPID, TSH, CMP #### [facility] [address] [address] [address] Antonio Goldberg Cholesterol in LDL [Mass/Vol] 138.6 mg/dL Normal [facility] Comment on above: Performed By: #### L IPID, TSH, CMP #### [facility] [address] [place] [address] Dr. Antonio Goldberg Cholesterol.total/ Cholesterol in HDL [Mass ratio] 3.4 {ratio} Normal [facility] Comment on above: Performed By: #### L IPID, TSH, CMP #### [facility] [address] [address] [address] Antonio Goldberg HDL NORMAL > or = 60 mg/dl - LO W CARDIOVASCULAR RISK <40 mg/dl - HIGH CARDIOVASCULAR RISK Normal [facility] Comment on above: Performed By: #### L IPID, TSH, CMP #### [facility] [address] [place] [address] Dr. Antonio Goldberg LDL CALC NORMAL SEE BELOW Normal [facility] Comment on above: Result Comment: <100 mg/dl OPTIMAL 100 - 129 mg/dl NEAR OR ABOVE OPTIMAL 130 - 159 mg/dl BORDERLINE HIGH 160 - 189 mg/dl HIGH >190 mg/dl VERY HIGH Performed By: #### L IPID, TSH, CMP #### [facility] [address] [address] [address] Antonio Goldberg Triglyceride [Mass/Vol] 47 mg/dL Normal <=150 [facility] Comment on above: Performed By: #### L IPID, TSH, CMP #### [facility] [address] [address] [address] Antonio Goldberg VLDL CALC 9.4 mg/dL Normal [facility] Comment on above: Performed By: #### L IPID, TSH, CMP #### [facility] [address] [place] [address] Dr. Antonio Goldberg PROF 14(COMP METB)on 022 Albumin [Mass/Vol] 3.3 g/dL Critically low 3.4-5.0 [facility] Comment on above: Performed By: #### L IPID, TSH, CMP #### [facility] [address] [place] [address] Dr. Antonio Goldberg Albumin/Globulin [Mass ratio] 0.9 {ratio} Normal [facility] Comment on above: Performed By: #### L IPID, TSH, CMP #### [facility] [address] [place] [address] Dr. Antonio Goldberg ALP [Catalytic activity/Vol] 96 U/L Normal 46-116 [facility] Comment on above: Performed By: #### L IPID, TSH, CMP #### [facility] [address] [place] [address] Dr. Antonio Goldberg ALT [Catalytic activity/Vol] 26 U/L Normal 14-59 [facility] Comment on above: Performed By: #### L IPID, TSH, CMP #### [facility] [address] [place] [address] Dr. Antonio Goldberg Anion gap [Moles/Vol] 9.6 mmol/L Normal [facility] Comment on above: Performed By: #### L IPID, TSH, CMP #### [facility] [address] [place] [address] Dr. Antonio Goldberg AST [Catalytic activity/Vol] 13 U/L Critically low 15-37 [facility] Comment on above: Performed By: #### L IPID, TSH, CMP #### [facility] [address] [place] [address] Dr. Antonio Goldberg Bilirubin [Mass/Vol] 0.5 mg/dL Normal 0.2-1.3 [facility] Comment on above: Performed By: #### L IPID, TSH, CMP #### [facility] [address] [place] [address] Dr. Antonio Goldberg Calcium [Mass/Vol] 8.3 mg/dL Critically low 8.5-10.1 [facility] Comment on above: Performed By: #### L IPID, TSH, CMP #### [facility] [address] [address] [address] Antonio Goldberg Chloride [Moles/Vol] 105 mmol/L Normal 98-107 [facility] Comment on above: Performed By: #### L IPID, TSH, CMP #### [facility] [address] [address] [address] Antonio Goldberg CO2 [Moles/Vol] 28.9 mmol/L Normal 22.0-30.0 [facility] Comment on above: Performed By: #### L IPID, TSH, CMP #### [facility] [address] [place] [address] Dr. Antonio Goldberg Creatinine [Mass/Vol] 0.73 mg/dL Normal 0.52-1.04 [facility] Comment on above: Performed By: #### L IPID, TSH, CMP #### [facility] [address] [place] [address] Dr. Antonio Goldberg EGFR-AF SALVADOREAN >60 Normal >=60 [facility] Comment on above: Performed By: #### L IPID, TSH, CMP #### [facility] [address] [place] [address] Dr. Antonio Goldberg EGFR-NON AF SALVADOREAN >60 Normal >=60 [facility] Comment on above: Performed By: #### L IPID, TSH, CMP #### [facility] [address] [place] [address] Dr. Antonio Goldberg Globulin (S) [Mass/Vol] 3.6 g/dL Normal [facility] Comment on above: Performed By: #### L IPID, TSH, CMP #### [facility] [address] [place] [address] Dr. Antonio Goldberg Glucose [Mass/Vol] 92 mg/dL Normal 74-106 [facility] Comment on above: Performed By: #### L IPID, TSH, CMP #### [facility] [address] [place], [place] [id number] Dr. Antonio Goldberg Potassium [Moles/Vol] 4.5 mmol/L Normal 3.4-5.0 [facility] Comment on above: Performed By: #### L IPID, TSH, CMP #### [facility] [address] [place] [address] Dr. Antonio Goldberg Protein [Mass/Vol] 6.9 g/dL Normal 6.1-8.2 [facility] Comment on above: Performed By: #### L IPID, TSH, CMP #### [facility] [address] [place] [address] Dr. Antonio Goldberg Sodium [Moles/Vol] 139 mmol/L Normal 137-145 [facility] Comment on above: Performed By: #### L IPID, TSH, CMP #### [facility] [address] [place] [address] Dr. Antonio Goldberg Urea nitrogen [Mass/Vol] 14.0 mg/dL Normal 7.0-18.0 [facility] Comment on above: Performed By: #### L IPID, TSH, CMP #### [facility] [address] [place] [address] Dr. Antonio Goldberg Urea nitrogen/Creatinin e [Mass ratio] 19.2 mg/mg Normal [facility] Comment on above: Performed By: #### L IPID, TSH, CMP #### [facility] [address] [place] [address] Dr. Antonio Goldberg TSHon 05-03-2021 TSH 1.251 uIU/mL Normal 0.470-4.680 [facility] Comment on above: Performed By: #### L IPID, TSH, CMP #### [facility] [address] [place] [address] Dr. Antonio Goldberg TSH RANGE SEE BELOW Normal [facility] Comment on above: Result Comment: <0.3 4 UIU/ml HYPERTHYROID 0.34-5.60 UIU/ml EUTHYROID >5.60 UIU/ml HYPOTHYROID Performed By: #### L IPID, TSH, CMP #### [facility] [address] [place] [address] Dr. Antonio Goldberg VITAMIN B12on 05-03-2021 Cobalamin (Vitamin B12) [Mass/Vol] 562.0 pg/mL Normal 239.0-931.0 [facility] Comment on above: Performed By: #### V ITB12 #### [facility] [address] [address] [address] Antonio Goldberg Progress Note-Physicianon Protein mass conc Patient: Anette OLIVER Age: 32 years Sex: Female : 1985 Associated Diagnoses: None Author: Amol Cuenca MD Postoperative Information Post Operative Note: Post Anesthesia Care Unit. Anesthetic utilized: General. Health Status Allergies: Allergic Reactions (All)Severity Not DocumentedSulfamethoxazole- Hives.Canceled/Inactive Reactions (All)No Known Allergies Problem list: All ProblemsPlantar fasciitis left foot / SNOMED CT 197127128 / Confirmed Physical Examination Intake and Output [...] discharged from anesthesia care. Condition stable. Normal [facility] Comment on above: Result Comment: Elec tronically Signed By: Bang KOO, Amol\.br\Date and Time Signed: 09/29/17 14:29 EDT Coding Summary.on 09-25-2017 Coding Summary. 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 fascial fibromatosis SECONDARY: PYMT PROC APC STAT DESCRIPTION DOCTOR NAME DATE [id number] J1 Fasciotomy, foot and/or Brown DPM, Kashif A 09/20/2017 toe LT Left side (used to identify procedures performed on the left side of the body) 29049 Anesthesia for Amol Cuenca MD 09/20/2017 procedures [...] Revised Date Saved: 09/25/2017 11:35 am Normal [facility] Progress Note-Physicianon Protein mass conc Patient: Anette [...] ProblemsPlantar fasciitis left foot / SNOMED CT 990548873 / Confirmed Histories Past Medical History: No active or resolved past medical history items have been selected or recorded. Procedure history: Caesarean section ([id number]). Social History Social & Psychosocial [id number]/03/2018 Risk Assessment: Denies Alcohol UseSubstance Abuse09/15/2017 Risk Assessment: Denies Substance [id number]/03/2018 Risk Assessment: Denies Tobacco Use. Physical Examination Pain assessment: Self-reports no pain. Airway: Mallampati classification: II (soft palate, fauces, uvula visible). Distance: Adequate. Mouth: Adequate opening. Neck: Full range of motion. Respiratory: Respirations are non-labored. Cardiovascular: Regular rhythm. Neurologic: Alert, Oriented. Review / Management Results review: No qualifying data available. Plan [place] [employer] (ASA) physical status classification: [...] and lungs, allergic reactions, and .. Normal [facility] Comment on above: Result Comment: Elec tronically Signed By: Bang KOO, Amol\.br\Date and Time Signed: 09/25/17 10:41 EDT Main OR Intraoperative Recor don 09-21-2017 Main OR Intraoperative Record IntraOp Document Type FT Summary Primary Physician: Kashif Yun DPM Finalized Date/Time: 09/21/17 09:37:52 Pt. Name: COOKIE OLIVER/Sex: 1985 Female Med Rec #: [id number] Physician: Kashif Yun DPM Financial #: [id number] Pt. Type: A Room/Bed: [facility]/ Admit/Disch: 09/20/17 06:31:00 - 09/20/17 10:30:00 Institution: Case Times FT Entry 1 Patient Times In Room 09/20/17 08:20:00 Out Room 09/20/17 08:50:00 Procedure Times Start 09/20/17 08:32:00 Stop 09/20/17 08:48:00 Anesthesia Times Start 09/20/17 08:20:00 Stop 09/20/17 08:50:00 Last Modified By: Mar George CST 09/20/17 08:51:59 General Comments: 09/21/2017 Chart opened to review and send charges David Cuenca CELL POURER Case Attendance FT Entry 1 Entry 2 Entry 3 Case Attendee Jama CAA, Areli Yun DPM, Kashif York RN, CNOR, Edel Role Performed Anesthesiologist Surgeon - Primary [employer] Time In 09/20/17 08:20:00 09/20/17 08:23:00 09/20/17 08:20:00 Time Out 09/20/17 08:50:00 09/20/17 08:50:00 09/20/17 08:50:00 Procedure PLANTAR FASCIA PLANTAR FASCIA PLANTAR FASCIA RELEASE(Left) RELEASE(Left) RELEASE(Left) Comments DR. CUENCA SUPERVISING Last Modified By: Wallace RN, Tayler Gonsalez RN, Tayler Carlson RN 09/20/17 08:52:00 09/20/17 08:52:00 09/20/17 08:52:00 Entry 4 Entry 5 Entry 6 Case Attendee Wallace CHU, Tayler Gallegos RN, Diego Banks CST Role Performed Line Installer - Primary Line Installer - Primary Scrub - Primary Time In [...] Given Participants Jama GREEN, Jaylen Rodgers RN, JULIANOREdel Farris RN, El Landrum RN, Dorian Roblero CST, [...] and tissue Entry 1 Skin Integrity Intact, [place], Warm, and Skin Abnormality Yes Dry, Bruised [...] Large Press Points Checked Yes By Areli Quintana Farris RN, El Landrum RN, Abby Outcomes Met? Yes Last Modified By: Tayler [...] Dorian Cortez CST, Jaylen Cortez RN, CNOR, Tayler Gonsalez RN Outcomes Met? Yes Yes Last Modified By: [...] RN Patient Status Stable Skin. Condition Intact, [place], Warm, and Description SAME PRE OP Dry, [...] safely administered during the perioperative period For [facility] please see scanned medication reconcilliation form for medications used at the field during the procedure. Tourniquet FT Pre-Care Text: Implements protective measures to prevent skin/tissue injury due to mechanical sources Entry 1 Tourniquet Type TOURNIQUET CUFF RED 18 Setting 250 mmHg X 4 [[id number]][F] Equipment Number B Placement Left Ankle Padding [...] BLANKET MISTRAL AIR Quantity 1 Aid TORSO [[id number]][F] Fluid/[place] Unit Mistral warming system Setting HIGH/43 DEGREES Body Site Upper anterior torso Last Modified By: Tayler Gonsalez RN 09/20/17 07:15:23 Case Comments Finalized By: Mar George CST Document Signatures Signed By: Tayler Gonsalez RN 09/20/17 08:52 Tayler Gonsalez RN 09/20/17 08:52 Mar George CST 09/21/17 09:37 Normal [facility] Inpatient Patient Summaryon 09-20-2017 [facility] INFORMATION Name: COOKIE OLIVER [facility] Admitting Physician: Kashif Yun DPM Physician: Kashif Yun DPM PCP: Maged INETO DO Diagnosis: Comment: PATIENT EDUCATION INFORMATIONInstructions:Brow n - Post Operative Instructions (Custom) (Custom)Medication Leaflets:Follow up:MEDICATION LISTComment: Normal [facility] Main OR PACU I Recordon Main OR PACU I Record PACU Phase I Document Type FT Summary Primary Physician: Kashif Yun DPM Finalized Date/Time: 09/20/17 09:28:18 Pt. Name: COOKIE OLIVER /Sex: 1985 Female Med Rec #: [id number] Physician: Kashif Yun DPM Financial #: [id number] Pt. Type: A Room/Bed: [place] [address] Admit/Disch: 09/20/17 06:31:46 - Institution: Case Times [...] I Outcomes Met? Yes Last Modified By: Christina Lui RN 09/20/17 09:28:08 Post-Care Text: The patient demonstrates [...] By: Christina Lui RN 09/20/17 09:28 Normal [facility] Main OR PACU II Recordon Main OR PACU II Record PACU Phase II Document Type FT Summary Primary Physician: Kashif Yun DPM Finalized Date/Time: 09/20/17 10:43:45 Pt. Name: COOKIE OLIVER/Sex: 1985 Female Med Rec #: [id number] Physician: Kashif Yun DPM Financial #: [id number] Pt. Type: A Room/Bed: 02/ Admit/Disch: 09/20/17 06:31:46 - Institution: Case Times [...] By: Daphnie Rosas RN 09/20/17 10:43 Normal [facility] Main OR Preoperative Recordo n 09-20-2017 Cholesterol mass conc PreOp Document Type FT Summary Primary Physician: Kashif Yun DPM Finalized Date/Time: 09/20/17 08:34:47 Pt. Name: COOKIE OLIVER/Sex: 1985 Female Med Rec #: [id number] Physician: Kashif Yun DPM Financial #: [id number] Pt. Type: A Room/Bed: 02/ Admit/Disch: 09/20/17 06:31:46 - Institution: Case Times [...] By: Tayler Gonsalez RN 09/20/17 08:34 Normal [facility] Operative Reporton 8 Operative Report Date of [...] for her first postoperativevisit.Kashif Yun D.P.M.aekDictated: 09/20/2017 #[id number]: 09/20/2017 #[id number]: Kashif Yun D.P.M. [facility] Comment on above: Result Comment: Elec tronically Signed By: Jama GREEN, Kashif Cardenas\.br\Date and Time Signed: 09/20/17 09:58 EDT Patient Education - Texton 0 09-20-2017 Cholesterol mass conc [place], [place] Yun DPM, FACFASPOST OPERATIVE INSTRUCTIONSKeep bandage clean [...] questions, feel free to call the doctor at:[phone] or [phone] Yun paged. Patient signature Date ____ Dr. Kashif Yun DPM, FACFAS Date Revised: 03-23 [facility] Progress Note-Physicianon Protein mass conc Patient: Anette OLIVER Age: 32 years Sex: Female : 1985 Associated Diagnoses: None Author: Kashif Yun DPM Postoperative Information Procedure: left instep plantar fasciotomy with division of fascia and muscle Date/ Time: 09/20/17 08:56:00 Preoperative Diagnosis: left plantar fascitis. Postoperative Diagnosis: courtney. Performed by: Kashif Yun DPM Estimated Blood Loss: 0 ml. Complications: None. Anesthesia type: General. [facility] Comment on above: Result Comment: Elec tronically Signed By: Kashif Yun DPM\.br\Date and Time Signed: 09/20/17 08:57 EDT Coding Summary.on 09-19-2017 Coding Summary. CODING DATE: 018 FINAL [facility] STATUS: Home (Routine DC) PAYOR: Imbery ADMIT DX: REASON FOR VISIT DX: Z01.812 [...] Rivas Date Saved: 09/19/2017 08:43 am Normal [facility] CBC w/Indiceson 09-15-2017 Erythrocyte distribution width Auto Ratio (RBC) 13.8 % Normal 10.9-14.2 [facility] Comment on above: Performed By: #### 2 [id number] ####[facility] [address] [place] [address] Hematocrit Auto Volume Fraction (Bld) 38.8 % Normal 34.0-46.0 [facility] Comment on above: Performed By: #### 2 [id number] ####[facility] [address] [place] [address] Hemoglobin mass conc (Bld) 13.3 g/dL Normal 12.0-16.0 [facility] Comment on above: Performed By: #### 2 [id number] ####[facility] [address] [place] [address] MCH Auto Entitic mass (RBC) 30.0 pg Normal 27.0-34.0 [facility] Comment on above: Performed By: #### 2 [id number] ####[facility] [address] [place] [address] MCHC Auto mass conc (RBC) 34.2 g/dL Normal 31.4-39.3 [facility] Comment on above: Performed By: #### 2 [id number] ####[facility] [address] [place] [address] MCV Auto Entitic volume (RBC) 87.7 fL Normal 80.0-100.0 [facility] Comment on above: Performed By: #### 2 [id number] ####[facility] [address] [place] [address] Platelet mean volume Auto Entitic volume (Bld) 8.1 fL Normal 6.4-10.8 [facility] Comment on above: Performed By: #### 2 [id number] ####[facility] [address] [place] [address] Platelets Auto #/vol (Bld) 320.0 E9/L Normal 150.0-500.0 [facility] Comment on above: Performed By: #### 2 [id number] ####[facility] [address] [place] [address] RBC Auto #/vol (Bld) 4.4 E12/L Normal 4.3-5.9 [facility] Comment on above: Performed By: #### 2 [id number] ####[facility] [address] [place] [address] WBC corrected for nucl RBC Auto #/vol (Bld) 8.7 E9/L Normal 4.0-11.0 [facility] Comment on above: Performed By: #### 2 [id number] ####[facility] [address] [place] [address] U BetaHcg Qualon 09-15-2017 HCG.beta subunit molar conc (U) Negative Normal [facility] Comment on above: Performed By: #### 2 [id number] ####[address] [address] Vital Signs Date Time Vital Sign Value Performing Clinician Faci lity 04-09-2024 14:06-0500 Body height 162.56 cm [facility] 04-09-2024 14:06-0500 Body mass index (BMI) [Ratio] 44.9 kg/m2 [facility] 04-09-2024 14:06-0500 Body temperature 97.3 [degF] [facility] 04-09-2024 14:06-0500 Body weight 118.55 kg [facility] 04-09-2024 14:06-0500 Diastolic blood pressure 103 mm[Hg] [facility] 04-09-2024 14:06-0500 Heart rate 102 /min [facility] 04-09-2024 14:06-0500 Respiratory rate 12 /min [facility] 04-09-2024 14:06-0500 Systolic blood pressure 148 mm[Hg] [facility] 12-22-2023 09:33-0500 Body height 162.56 cm [facility] 12-22-2023 09:33-0500 Body mass index (BMI) [Ratio] 44.1 kg/m2 [facility] 12-22-2023 09:33-0500 Body temperature 97.5 [degF] [facility] 12-22-2023 09:33-0500 Body weight 116.57 kg [facility] 12-22-2023 09:33-0500 Diastolic blood pressure 82 mm[Hg] [facility] 12-22-2023 09:33-0500 Heart rate 86 /min [facility] 12-22-2023 09:33-0500 SaO2% (BldA) [Mass fraction] 95 % [facility] 12-22-2023 09:33-0500 Systolic blood pressure 130 mm[Hg] [facility] Encounters Encounter Date Encounter Type Care Provider Facility Start: 04-09-2024 End: 04-09-2024 ambulatory [facility] Work Phone: Start: 04-09-2024 End: 04-09-2024 Patient encounter procedure Pending Sale To [facility] Work Phone: Start: 12-22-2023 End: 12-22-2023 ambulatory [facility] Work Phone: Start: 12-22-2023 End: 12-22-2023 Patient encounter procedure Pending Sale To [facility] Work Phone: Start: 06-05-2023 End: 06-05-2023 ambulatory [facility] Work Phone: Start: 06-05-2023 End: 06-05-2023 Patient encounter procedure Pending Sale To [facility] Work Phone: Start: 04-13-2023 Non-patient / Non-visit Pending Sale To [facility] [employer] [facility] Work Phone: Start: 03-22-2023 End: 03-22-2023 ambulatory Diego Gerson Other [facility] Other Start: 03-22-2023 Office outpatient vi sit 15 minutes Diego Nieto [facility] Start: 09-12-2022 End: 09-12-2022 ambulatory Diego Nieto Other [facility] Other Start: 09-12-2022 Office outpatient vi sit 15 minutes [facility] Start: 02-13-2022 End: 02-14-[address] DIEGO NIETO Facility:[facility] Start: 01-26-2022 End: 02-12-[address] DIEGO NIETO Facility:[facility] Start: 05-06-2021 Encounter for genera l adult medical examination without abnormal findings DR DIEGO NIETO [facility] Start: 05-03-2021 Adult health examination Solo mary Nieto Other [facility] Other Start: 05-03-2021 End: 05-04-[address] DIEGO NIETO Facility:[facility] Start: 05-03-2021 End: 05-04-2021 Encounter for general adult medical examination without abnormal findings DR DIEGO NIETO Facility:[facility] Start: 04-11-2019 Gynecological examin ation normal Diego Nieto Other [facility] Other Start: 09-20-2017 End: 09-20-2017 Patient encounter Kashif Yun Facility:[facility] Start: 09-15-2017 End: 09-16-2017 Patient encounter Kashif Yun Facility:[facility] Start: 08-20-2017 End: 08-20-2017 Emergency department patient visit Diego Nieto Facility:[facility] Procedures Date Procedure Procedure Detail Performing Clinician Start: 09-18-2017 Pre-surgery evaluation Diego Nieto Other Start: 01-20-2017 General examination of patient Diego Nieto Other Start: 04-10-2008 Contraception care education Diego Nieto Other Depression screening Donald Nieto Other Payers Date Payer Category Payer Self-pay 1985 Unknown [id number] [id number] [id number] 1985 Unknown [id number] [id number] [id number] 1985 Unknown [id number] [id number] [id number] 1960 Unknown [id number] Medicaid [id number]. [id number] Medicaid [place] [employer] [id number] Unknown [id number] [id number] [id number] Unknown Jarrod Frost BARBRA [id number] Social History Date Type Detail Facility Sex Assigned At [facility] Other Start: 08-20-2017 End: 04-09-2024 Tobacco smoking status NHIS Never smoked tobacco (finding) [facility] Start: 1985 Sex Assigned At Female F [facility] Start: 12-22-2023 End: 04-09-2024 Sex Female (finding) [facility] Evaluation note 03-22-2023 Note Date & [...] exercise to achieve/mainta in a normal BMI. [facility] Other Evaluation note 09-12-2022 Note Date & Type Note Facility 09-12-2022 Evaluation note Encounter Date Diagnosis Assessment Notes Aug, Acute bronchitis due to other specified organisms (ICD-10 - J20.8) Instructed to use Robitussin or Mucinex for cough, saline or Flonase NS for congestion, Tylenol for pain and fever. ER for worsening chest tightness and SOB. Call if no improvement for IP visit [facility] Other History general Narrative - Reported 09-12-2022 [...] Comment : , Problem Status : Inactive, [facility] Other Evaluation note Note Date & Type Note Facility Evaluation note Diagnosis Onset Date Bronchitis acute Chest congestion acute Fever acute [facility] Work Phone: Evaluation note Note Date & Type Note Facility Evaluation note Diagnosis Onset Date Resolution Bronchitis acute December 22, 2023 9:24am [facility] Work Phone: Evaluation note Note Date & Type Note Facility Evaluation note Diagnosis Onset Date Resolution Acute sinusitis noneactive April 09, 2024 1:42pm Sinus pressure noneactive March 172024 1:42pm [facility] Work Phone: History general Narrative - Reported [...] Fasciitis 09/2017 Hospitalization History see surgical history [facility] Other Summary Purpose Family History No Family History Records FoundNo Family History Records FoundNo Family History Records Found Advance Directives Advance Directive Response Recorded Date/ Time Advance Directives No August 20 6:56pm Advance Directive Response Recorded Date/ Time Advance Directives No August 20 5:56pm Advance Directive Response Recorded Date/ Time Advance Directives No March 9:10am Chief Complaint and Reason for Visit Chief Complaint congestion, cough Reason for Visit Bronchitis Chest congestion Fever Chief Complaint Admit Date Cough December 22, 2023 9 :24am Reason for Visit Admit Date Bronchitis December 22, 2023 9 :24am Chief Complaint Admit Date Cough/Sinuses/Congestion April 09, 2024 1:42pm Reason for Visit Admit Date Acute sinusitis April 09, 2024 1:42pm Sinus pressure April 09, 2024 1:42pm Additional Source Comments INFORMATION SOURCE (unrecogn ized section and content) DATE CREATED AUTHOR 10/07/2017 [facility] DATE CREATED AUTHOR AUTHOR'S ORGANIZ ATION 05/28/2018 [facility] DATE CREATED AUTHOR AUTHOR'S ORGANIZ ATION 04/06/2022 [facility] REASON FOR VISIT (unrecogniz ed section and content) [phone]-Cough, Congesti on, SOBSinuses, Body Aches, Congestion- Testing for [phone] Care Teams (unrecognized sec tion and content) Team Status: Active Member Role Status Dates Diego Nieto DO Primary Care Provider Active Team Status: Inactive Member Role Status Dates Diego Nieto DO Primary Care Provider Active Start: December 22, 2023 End: December 22, 2023 ARMANDO Quiles Attending Provider Active Start: December 22, 2023 End: December 22, 2023 Team Status: Active Member Role Status Dates Diego Nieto DO Primary Care Provide r, Attending Provider Active Start: April 13, 2023 Team Status: Inactive Member Role Status Dates Diego Nieto DO Primary Care Provider Active Start: June 05, 2023 End: June 05, 2023 ARMANDO Quiles Attending Provider Act shadi Start: June 05, 2023 End: June 05, 2023 Team Status: Inactive Member Role Status Dates Diego Nieto DO Primary Care Provide r, Attending Provider Active Start: April 09, 2024 End: April 09, 2024 Goals (unrecognized section and content) Goals may [...] BE BASED ON THE PRIMARY CLINICAL RECORDS. [employer] provides no warranty or guarantee of the accuracy or completeness of information in this document.
--- NOTE | 2024-05-19 22:05 | ED.ABDPAIN1 ---
HPI - Abdominal Pain General Chief Complaint: Abdominal Pain Stated Complaint: Abdominal Pain Time Seen by Provider: 05/19/24 21:57 Mode of arrival: walk-in History of Present Illness HPI narrative: mild RUQ pain 2 nights ago. recurrent pain after eating tonight. Pain was sharp and radiated around to her back. No associated nausea. Pain still present but has eased up. No fever or chest pain Denies past abdominal surgeries Related Data Home Medications ?Medication ?Instructions ?Recorded ?Confirmed No Known Home Medications 08/31/23 08/31/23 Allergies Allergy/AdvReac Type Severity Reaction Status Date / Time Sulfa (Sulfonamide Allergy Severe Hives Verified 05/19/24 21:48 Antibiotics) Review of Systems ROS Status of ROS 10 or more systems reviewed and unremarkable except as noted in history and below [facility] Medical History (Updated 05/19/24 @ 23:45 by Chinedu Gallegos MD) No pertinent past medical history ?Z78.9 - Other specified health status (ICD-10) No pertinent past psychiatric history Surgical History (Updated 04/13/23 @ 08:54 by Ovidio Jerry) History of ?Z98.891 - History of uterine scar from previous surgery (ICD-10) Social History Smoking status: Never smoker Little interest or pleasure in doing things: not at all Feeling down, depressed, or hopeless: not at all Exam Constitutional Vital Signs, click to edit/add: Last Vital Signs Temp 98.1 F 05/19/24 21:48 Pulse 88 05/19/24 21:48 Resp 20 05/19/24 21:48 BP 140/98 H 05/19/24 22:13 Pulse Ox 98 05/19/24 21:48 O2 Del Method Nasal Cannula 05/19/24 21:48 Common normals: no apparent distress, average body habitus, oriented x3, no limitations, healthy appearing, alert and well nourished [facility] Common normals: normocephalic and head/scalp atraumatic Eye Common normals: EOMs intact bilaterally and conjunctivae normal Respiratory Common normals: normal respiratory effort, no retractions, no use of accessory muscles and clear to auscultation bilaterally Cardio Common normals: regular rate, regular rhythm, S1 normal heart sound and S2 normal heart sound GI Other: mild RUQ tenderness Extremity Common normals: normal to inspection and full ROM Neuro Common normals: oriented x3, CN's II-XII intact bilaterally, moves all extremities and no focal motor deficits Psych Appearance: grossly normal Course Vital Signs Vital signs: Vital Signs Temperature 98.1 F 05/19/24 21:48 Pulse Rate 88 05/19/24 21:48 Respiratory Rate 20 05/19/24 21:48 Pulse Oximetry 98 05/19/24 21:48 Oxygen Delivery Method Nasal Cannula 05/19/24 21:48 Temperature 98.1 F 05/19/24 21:48 Pulse Rate 88 05/19/24 21:48 Respiratory Rate 20 05/19/24 21:48 Blood Pressure 140/98 H 05/19/24 22:13 Pulse Oximetry 98 05/19/24 21:48 Oxygen Delivery Method Nasal Cannula 05/19/24 21:48 MDM - Abdominal Pain MDM Narrative Medical decision making narrative: patient presents with symptoms c/w biliary colic. Pain RUQ that radiates around to her back. Similar pain a couple of days ago. Pain again tonight after eating spicy meal. sharper pain that decreased in intensity by the time she arrived her. Exam with mild RUQ tenderness. CT with contracted gallbladder that limited evaluation. No other acute findings. labs with mild elevation of alk phos. Patient advised of the working diagnosis. Will plan out patient GB US and have her follow up with her doctor Lab Data Labs: Lab Results 05/19/24 05/19/24 Range/Units 21:54 21:56 WBC 12.0 H (4.0-11.0) 10^3/uL RBC 4.55 (4.20-5.40) 10^6/uL Hgb 13.5 (12.0-16.0) g/dL Hct 40.4 (36.0-48.0) % MCV 88.8 (81.0-99.0) fL MCH 29.7 (26.7-34.0) pg MCHC 33.4 (29.9-35.2) g/dL RDW 12.7 (11.0-15.0) % Plt Count 388 (150-450) 10^3/uL MPV 9.6 (9.5-13.5) fL Neut % (Auto) 61.2 (43.0-75.0) % Lymph % (Auto) 30.0 (20.5-60.0) % Stanley % (Auto) 4.5 (1.7-12.0) % Eos % (Auto) 3.7 (0.9-7.0) % Baso % (Auto) 0.4 (0.2-2.0) % Neut # (Auto) 7.3 H (1.4-6.5) 10^3/uL Lymph # (Auto) 3.6 (1.2-3.8) 10^3/uL Stanley # (Auto) 0.5 (0.3-0.8) 10^3/uL Eos # (Auto) 0.4 (0.0-0.7) 10^3/uL Baso # (Auto) 0.1 (0.0-0.1) 10^3/uL Abs Immat Gran (auto) 0.02 (0.00-0.03) 10^3/uL Imm/Tot Granulo (auto) 0.2 (0.0-0.5) % Sodium 139 (136-145) mmol/L Potassium 3.6 (3.5-5.1) mmol/L Chloride 102 (98-107) mmol/L Carbon Dioxide 29.4 (21.0-32.0) mmol/L Anion Gap 11.2 BUN 17.0 (7.0-18.0) mg/dL Creatinine 1.01 (0.55-1.02) mg/dL Est GFR ( Amer) >60 (>=60 mL/min/1.73m^2) Est GFR (Non-Af Amer) >60 (>=60 mL/min/1.73m^2) BUN/Creatinine Ratio 16.8 Glucose 92 (74-106) mg/dL Lactate 1.1 (0.4-2.0) mmol/L Calcium 8.7 (8.5-10.1) mg/dL Total Bilirubin 0.3 (0.2-1.0) mg/dL AST 12 L (15-37) U/L ALT 22 (14-59) U/L Alkaline Phosphatase 127 H (46-116) U/L Troponin I High Sens 5.1 (4.0-51.3) pg/mL Total Protein 7.1 (6.4-8.2) g/dL Albumin 3.3 L (3.4-5.0) g/dL Globulin 3.8 g/dL Albumin/Globulin Ratio 0.9 Lipase 70.0 (16.0-77.0) U/L Urine Color Lt. yellow (YELLOW) Urine Clarity Clear (CLEAR) Urine pH 6.0 (5.0-9.0) Ur Specific Tyler 1.015 (1.005-1.025) Urine Protein Negative (NEG/TRACE) mg/dL Urine Glucose (UA) Negative (NEGATIVE) mg/dL Urine Ketones Negative (NEGATIVE) mg/dL Urine Occult Blood Negative (NEGATIVE) Urine Nitrite Negative (NEGATIVE) Urine Bilirubin Negative (NEGATIVE) Urine Urobilinogen 0.2 (0.2-1.0) EU/dL Ur Leukocyte Esterase Negative (NEGATIVE) Urine RBC None seen (0-2) #/HPF Urine WBC 0-2 A (NONE SEEN) #/HPF Ur Squamous Epith Cells Rare (NONE/RARE) #/LPF Urine Crystals None seen (None Seen) #/HPF Urine Bacteria None seen (NONE SEEN) #/HPF Urine Casts None seen (NONE SEEN) #/LPF Urine Mucus None seen (NONE SEEN) Ur Culture Indicated? No Urine HCG, Qual Negative (NEGATIVE) Discharge Plan Discharge Chief Complaint: Abdominal Pain Clinical Impression: Abdominal pain Patient Disposition: Home, Self-Care Prescriptions / Home Meds: No Action No Known Home Medications Print Language: Bolivian Instructions: Abdominal Pain (ED) Additional Instructions: return for ultrasound as instructed and then follow up with your doctor. Referrals: Diego Nieto DO [Primary Care Provider] - 1 week
[2024-05-19 22:13] VITALS: BP 140/98
[2024-05-19 22:13] LABS: Basophils Absolute Auto 0.1 10^3/uL (0.0-0.1); Basophils Percent Auto 0.4 % (0.2-2.0); Eosinophils Absolute Auto 0.4 10^3/uL (0.0-0.7); Eosinophils Percent Auto 3.7 % (0.9-7.0); Hematocrit 40.4 % (36.0-48.0); Hemoglobin 13.5 g/dL (12.0-16.0); Immature Granulocytes Abs Auto 0.02 10^3/uL (0.00-0.03); Immature Granulocytes Pct Auto 0.2 % (0.0-0.5); Lymphocytes Absolute Auto 3.6 10^3/uL (1.2-3.8); Mean Corpuscular HGB Conc 33.4 g/dL (29.9-35.2); Mean Corpuscular Hemoglobin 29.7 pg (26.7-34.0); Mean Corpuscular Volume 88.8 fL (81.0-99.0); Mean Platelet Volume 9.6 fL (9.5-13.5); Monocytes Absolute Auto 0.5 10^3/uL (0.3-0.8); Monocytes Percent Auto 4.5 % (1.7-12.0); Neutrophils Absolute Auto 7.3 10^3/uL (1.4-6.5); Neutrophils Percent Auto 61.2 % (43.0-75.0); Platelet Count 388 10^3/uL (150-450); Red Blood Count 4.55 10^6/uL (4.20-5.40); Red Cell Distribution Width 12.7 % (11.0-15.0)
[2024-05-19 22:15] LABS: Bilirubin Urine NEGATIVE (NEGATIVE); Blood Urine NEGATIVE (NEGATIVE); Clarity Urine CLEAR (CLEAR); Color Urine LT. YELLOW (YELLOW); Glucose Urine UA NEGATIVE (NEGATIVE); Ketones Urine NEGATIVE (NEGATIVE); Leukocyte Esterase Urine NEGATIVE (NEGATIVE); Nitrite Urine NEGATIVE (NEGATIVE); Protein Urine NEGATIVE (NEG/TRACE); Specific Gravity Urine 1.015 (1.005-1.025); Urobilinogen Urine 0.2 EU/dL (0.2-1.0)
[2024-05-19 22:16] LABS: HCG Qualitative Urine* NEGATIVE (NEGATIVE); Internal Control Within Normal Limits
[2024-05-19 22:21] LABS: Bacteria Urine NONE SEEN #/HPF (NONE SEEN); Cast Seen? NONE SEEN #/LPF (NONE SEEN); Crystals Seen? None Seen #/HPF (None Seen); Mucus Urine NONE SEEN (NONE SEEN); RBC Urine NONE SEEN #/HPF (0-2); Squamous Epithelial Cell Urine RARE #/LPF (NONE/RARE); Urine Culture Indicated NO; WBC Urine 0-2 #/HPF (NONE SEEN)
[2024-05-19 22:24] LABS: Alanine Aminotransferase 22 U/L (14-59); Albumin Globulin Ratio 0.9; Albumin Level 3.3 g/dL (3.4-5.0); Alkaline Phosphatase 127 U/L (46-116); Anion Gap 11.2; Aspartate Amino Transferase 12 U/L (15-37); BUN Creatinine Ratio 16.8; Bilirubin Total 0.3 mg/dL (0.2-1.0); Calcium 8.7 mg/dL (8.5-10.1); Carbon Dioxide 29.4 mmol/L (21.0-32.0); Chloride 102 mmol/L (98-107); Estimated GFR (African America >60 (>=60 mL/min/1.73m^2); Estimated GFR (Non-African Ame >60 (>=60 mL/min/1.73m^2); Globulin 3.8 g/dL; Glucose 92 mg/dL (74-106); Potassium 3.6 mmol/L (3.5-5.1); Sodium 139 mmol/L (136-145); Total Protein 7.1 g/dL (6.4-8.2)
[2024-05-19 22:26] LABS: Lactate/Lactic Acid 1.1 mmol/L (0.4-2.0); Troponin I High Sensitivity 5.1 pg/mL (4.0-51.3)
[2024-05-19] MEDS: 0.9 % SODIUM CHLORIDE 1,000 ML 999 ML IV (22:27)
== END 2024-05-20 00:21 | disposition home or self-care (01) ==
PROVIDERS: Emergency Provider Internal Medicine; PCP Internal Medicine
DX: R10.84 Generalized abdominal pain (principal); R10.11 Right upper quadrant pain; N20.0 Calculus of kidney
CPT/HCPCS: 36415; 74176; 80053; 81001; 83605; 83690; 84484; 84703; 85025; 99284

== ENCOUNTER 2024-05-20 08:14 | Outpatient (OUT) | payer MEDICAID, SELFPAY ==
--- NOTE | 2024-05-20 08:26 | US_ITS ---
The [address] [address] Patient Name: COOKIE OLIVER MRN: [id number] date: 1985 Sex: F Assigned Patient Location: [facility] Current Patient Location: [facility] Accession/Order Number: [id number] Exam Date: 05/20/2024 09:08 Report Date: 05/20/2024 09:09 At the request of: RAMA KHAN MD Procedure: US right upper quadrant LIMITED ABDOMINAL ULTRASOUND WITH ASSESSMENT OF RIGHT UPPER QUADRANT HISTORY: Postprandial right upper quadrant pain COMPARISON: None Negative ultrasound Espinoza's sign reported. COMMON BILE DUCT: Normal caliber. No intraluminal abnormality. LIVER CONTOUR: Normal. LIVER PARENCHYMA: Normal echogenicity HEPATIC LESION: None INTRAHEPATIC BILIARY DUCTAL DILATATION No ductal dilatation identified. GALLSTONES: No shadowing gallstones. GALLBLADDER SLUDGE: No gallbladder sludge. GALLBLADDER WALL: Normal thickness PERICHOLECYSTIC FLUID: None Pancreas: Unremarkable PORTAL VEIN: Normal blood flow. Liver size: Normal No RIGHT hydronephrosis identified. US/US right upper quadrant IMPRESSION: Unremarkable exam Impression dictated by: Galileo Wall M.D.05/20/2024 9:09 AM Dictation Location: [place] [address] Electronically authenticated by: [id number] Date: 05/20/2024 09:09
--- OUTSIDE RECORDS SUMMARY | 2024-05-20 08:28 | XMS_ITS | CCD ---
Author Organization [facility] Care Team Providers Care Principal Statistical Programmer Name Role Phone Kashif Yun Unavailable Unavailable Jama, Kashif Theresa Unavailable Unavailable Kelechi Yunolas A Unavailable Unavailable BALL, [phone] UNKNOWN Unavailable Unavailable Brown, Kashif A Unavailable Unavailable Brown, Kashif A Unavailable Unavailable Brown, Kashif A Unavailable Unavailable BALL, [phone] UNKNOWN Unavailable Unavailable Ball, Diego Primary Care [...] source) sulfamethoxazole; Translations: [sulfamethoxazole ] Drug Allergy [facility] Repository (1 source) No Known Allergies; Translations: [No Known Allergies] Propensity to adverse reactions (disorder) [facility] Repository (1 source) Sulfonamides (Antibiotic) Drug allergy (disorder) 08-21-19 [facility] Repository (1 source) Sulfonamides (Antibiotic) Drug allergy (disorder) 10-12-19 13 [facility] Repository (1 source) patient allergy list reviewed by nurse or physicia Propensity to adverse reactions 04-24-19 Comment:Done [employer] Other (2 sources) Substance with sulfonamide structure and antibacterial mechanism of action (substance) Drug allergy Unknown [employer] Other Medications Current Medications Medication Drug Class(es) [...] oral q HS for 30 *Reorder from [employer] for eRx and Interaction Alerts* Jan, Active [...] oral q HS for 0 *Reorder from [employer] for eRx and Interaction Alerts* Dec, Active [...] Auto (Urine sed) [#/Area] RARE #/LPF NONE/RARE [facility] Automated leukocytes count i n urine sediment (number/area)on 04-13-2023 WBC Auto (Urine sed) [#/Area] 0-2 #/HPF 0-2 [facility] Automated urine specific gra vity by refractometryon 04-13-2023 Specific gravity Refractometry automated (U) [Rel density] 1.010 1.005-1.025 [facility] Bilirubin Auto test strip (U ) [Mass/Vol]on 04-13-2023 Bilirubin (U) [Mass/Vol] Negative NEGATIVE [facility] Casts typing in urine sedime nt by light microscopyon 04-13-2023 Casts LM Nom (Urine sed) NONE SEEN #/LPF NONE SEEN [facility] Color Auto (U)on 04-13-2023 Color (U) LT. YELLOW YELLOW [facility] Ketones Auto test strip (U) [Mass/Vol]on 04-13-2023 Ketones (U) [Mass/Vol] Negative NEGATIVE [facility] Mucus LM Ql (Urine sed)on Mucus Ql (Urine sed) NONE SEEN NONE SEEN [facility] No Panel Informationon Urine Culture Reflexed NO [facility] Urine Microscopic Review YES [facility] Protein Auto test strip (U) [Mass/Vol]on 04-13-2023 Protein (U) [Mass/Vol] Negative NEG/TRACE [facility] Specific gravity Auto test s trip (U) [Rel density]on 04-13-2023 Specific gravity (U) [Rel density] CLEAR CLEAR [facility] Urine bacteria detection by automated methodon 04-13-2023 Bacteria Auto Ql (U) NONE SEEN #/HPF NONE SEEN [facility] Urine glucose measurement by test strip (mass/volume)on 04-13-2023 Glucose Test strip (U) [Mass/Vol] Negative NEGATIVE [facility] Urine hemoglobin detection b y automated test stripon 04-13-2023 Hemoglobin Auto test strip Ql (U) TRACE-I NEGATIVE [facility] Urine nitrite detection by a utomated test stripon 04-13-2023 Nitrite Auto test strip Ql (U) Negative NEGATIVE [facility] Urine sediment crystal ident ification by light microscopyon 04-13-2023 Crystals LM Nom (Urine sed) None Seen #/HPF None Seen [facility] Urine sediment leukocyte cou nt by microscopy (number/high power field)on 04-13-2023 WBC LM.HPF (Urine sed) [#/Area] 0-2 #/HPF NONE SEEN [facility] Urobilinogen Auto test strip (U) [Mass/Vol]on 04-13-2023 Urobilinogen Qn (U) 0.2 {Esthela'U}/dL 0.2-1.0 [facility] pH Auto test strip (U)on pH (U) 6.5 [pH] 5.0-9.0 [facility] CBC AUTO DIFFon 05-03-2021 BASO # 0.0 103/ul Normal 0.0-0.1 [facility] Comment on above: Performed By: #### C BC #### [facility] [address] [address] [address] Antonio Goldberg Basophils/100 WBC (Bld) 0.4 % Normal 0.2-2.0 [facility] Comment on above: Performed By: #### C BC #### [facility] [address] [address] [address] Antonio Goldberg EO # 0.1 103/ul Normal 0.0-0.7 [facility] Comment on above: Performed By: #### C BC #### [facility] [address] [place] [address] Dr. Antonio Goldberg Eosinophils/100 WBC (Bld) 1.8 % Normal 0.9-7.0 [facility] Comment on above: Performed By: #### C BC #### [facility] [address] [place] [address] Dr. Antonio Goldberg Erythrocyte distribution width (RBC) [Ratio] 13.7 % Normal 11.0-15.0 [facility] Comment on above: Performed By: #### C BC #### [facility] [address] [place] [address] Dr. Antonio Goldberg Hematocrit (Bld) [Volume fraction] 42.1 % Normal 36.0-48.0 [facility] Comment on above: Performed By: #### C BC #### [facility] [address] [place] [address] Dr. Antonio Goldberg Hemoglobin (Bld) [Mass/Vol] 13.7 g/dL Normal 12.0-16.0 [facility] Comment on above: Performed By: #### C BC #### [facility] [address] [place] [address] Dr. Antonio Goldberg IG # 0.02 10e3/ul Normal 0.00-0.03 [facility] Comment on above: Performed By: #### C BC #### [facility] [address] [place] [address] Dr. Antonio Goldberg IG % 0.3 % Normal 0.0-0.5 [facility] Comment on above: Performed By: #### C BC #### [facility] [address] [place] [address] Dr. Antonio Goldberg LYMPH # 1.8 103/ul Normal 1.2-3.8 [facility] Comment on above: Performed By: #### C BC #### [facility] [address] [place] [address] Dr. Antonio Goldberg Lymphocytes/100 WBC (Bld) 26.0 % Normal 20.5-60.0 [facility] Comment on above: Performed By: #### C BC #### [facility] [address] [place] [address] Dr. Antonio Goldberg MANUAL DIFF REQ NO Normal [facility] Comment on above: Performed By: #### C BC #### [facility] [address] [place] [address] Dr. Antonio Goldberg MCH (RBC) [Entitic mass] 29.3 pg Normal 26.7-34.0 [facility] Comment on above: Performed By: #### C BC #### [facility] [address] [place] [address] Dr. Antonio Goldberg MCHC (RBC) [Mass/Vol] 32.5 g/dL Normal 29.9-35.2 [facility] Comment on above: Performed By: #### C BC #### [facility] [address] [place] [address] Dr. Antonio Goldberg MCV (RBC) [Entitic vol] 90.0 fL Normal 81.0-99.0 [facility] Comment on above: Performed By: #### C BC #### [facility] [address] [place] [address] Dr. Antonio Goldberg MONO # 0.4 103/ul Normal 0.3-0.8 [facility] Comment on above: Performed By: #### C BC #### [facility] [address] [place] [address] Dr. Antonio Goldberg Monocytes/100 WBC (Bld) 5.3 % Normal 1.7-12.0 [facility] Comment on above: Performed By: #### C BC #### [facility] [address] [place] [address] Dr. Antonio Goldberg NEUT # 4.7 103/ul Normal 1.4-6.5 [facility] Comment on above: Performed By: #### C BC #### [facility] [address] [address] [address] Antonio Goldberg Neutrophils/100 WBC (Bld) 66.2 % Normal 43.0-75.0 [facility] Comment on above: Performed By: #### C BC #### [facility] [address] [place] [address] Dr. Antonio Goldberg Platelet mean volume (Bld) [Entitic vol] 9.3 fL Critically low 9.5-13.5 [facility] Comment on above: Performed By: #### C BC #### [facility] [address] [place] [address] Dr. Antonio Goldberg PLT 318 103/ul Normal 150-450 [facility] Comment on above: Performed By: #### C BC #### [facility] [address] [place] [address] Dr. Antonio Goldberg RBC 4.68 106/ul Normal 4.20-5.40 [facility] Comment on above: Performed By: #### C BC #### [facility] [address] [place] [address] Dr. Antonio Goldberg WBC 7.0 103/ul Normal 4.0-11.0 [facility] Comment on above: Performed By: #### C BC #### [facility] [address] [place] [address] Dr. Antonio Goldberg LIPID PROFILEon 05-03-2021 CHOL-HDL RATIO NORM SEE BELOW Normal [facility] Comment on above: Result Comment: 3.3 - 4.4 LOW RISK 4.4 - 7.1 AVERAGE RISK 7.1 - 11.0 MODERATE RISK >11.0 HIGH RISK Performed By: #### L IPID, TSH, CMP #### [facility] [address] [place] [address] Dr. Antonio Goldberg Cholesterol [Mass/Vol] 210 mg/dL Critically high <=200 [facility] Comment on above: Performed By: #### L IPID, TSH, CMP #### [facility] [address] [address] [address] Antonio Goldberg Cholesterol in HDL [Mass/Vol] 62 mg/dL Critically high 40-60 [facility] Comment on above: Performed By: #### L IPID, TSH, CMP #### [facility] [address] [address] [address] Antonio Goldberg Cholesterol in LDL [Mass/Vol] 138.6 mg/dL Normal [facility] Comment on above: Performed By: #### L IPID, TSH, CMP #### [facility] [address] [place] [address] Dr. Antonio Goldberg Cholesterol.total/ Cholesterol in HDL [Mass ratio] 3.4 {ratio} Normal [facility] Comment on above: Performed By: #### L IPID, TSH, CMP #### [facility] [address] [address] [address] Antonio Goldberg HDL NORMAL > or = 60 mg/dl - LO W CARDIOVASCULAR RISK <40 mg/dl - HIGH CARDIOVASCULAR RISK Normal [facility] Comment on above: Performed By: #### L IPID, TSH, CMP #### [facility] [address] [place] [address] Dr. Antonio Goldberg LDL CALC NORMAL SEE BELOW Normal [facility] Comment on above: Result Comment: <100 mg/dl OPTIMAL 100 - 129 mg/dl NEAR OR ABOVE OPTIMAL 130 - 159 mg/dl BORDERLINE HIGH 160 - 189 mg/dl HIGH >190 mg/dl VERY HIGH Performed By: #### L IPID, TSH, CMP #### [facility] [address] [address] [address] Antonio Goldberg Triglyceride [Mass/Vol] 47 mg/dL Normal <=150 [facility] Comment on above: Performed By: #### L IPID, TSH, CMP #### [facility] [address] [address] [address] Antonio Goldberg VLDL CALC 9.4 mg/dL Normal [facility] Comment on above: Performed By: #### L IPID, TSH, CMP #### [facility] [address] [place] [address] Dr. Antonio Goldberg PROF 14(COMP METB)on 022 Albumin [Mass/Vol] 3.3 g/dL Critically low 3.4-5.0 [facility] Comment on above: Performed By: #### L IPID, TSH, CMP #### [facility] [address] [place] [address] Dr. Antonio Goldberg Albumin/Globulin [Mass ratio] 0.9 {ratio} Normal [facility] Comment on above: Performed By: #### L IPID, TSH, CMP #### [facility] [address] [place] [address] Dr. Antonio Goldberg ALP [Catalytic activity/Vol] 96 U/L Normal 46-116 [facility] Comment on above: Performed By: #### L IPID, TSH, CMP #### [facility] [address] [place] [address] Dr. Antonio Goldberg ALT [Catalytic activity/Vol] 26 U/L Normal 14-59 [facility] Comment on above: Performed By: #### L IPID, TSH, CMP #### [facility] [address] [place] [address] Dr. Antonio Goldberg Anion gap [Moles/Vol] 9.6 mmol/L Normal [facility] Comment on above: Performed By: #### L IPID, TSH, CMP #### [facility] [address] [place] [address] Dr. Antonio Goldberg AST [Catalytic activity/Vol] 13 U/L Critically low 15-37 [facility] Comment on above: Performed By: #### L IPID, TSH, CMP #### [facility] [address] [place] [address] Dr. Antonio Goldberg Bilirubin [Mass/Vol] 0.5 mg/dL Normal 0.2-1.3 [facility] Comment on above: Performed By: #### L IPID, TSH, CMP #### [facility] [address] [place] [address] Dr. Antonio Goldberg Calcium [Mass/Vol] 8.3 mg/dL Critically low 8.5-10.1 [facility] Comment on above: Performed By: #### L IPID, TSH, CMP #### [facility] [address] [address] [address] Antonio Goldberg Chloride [Moles/Vol] 105 mmol/L Normal 98-107 [facility] Comment on above: Performed By: #### L IPID, TSH, CMP #### [facility] [address] [address] [address] Antonio Goldberg CO2 [Moles/Vol] 28.9 mmol/L Normal 22.0-30.0 [facility] Comment on above: Performed By: #### L IPID, TSH, CMP #### [facility] [address] [place] [address] Dr. Antonio Goldberg Creatinine [Mass/Vol] 0.73 mg/dL Normal 0.52-1.04 [facility] Comment on above: Performed By: #### L IPID, TSH, CMP #### [facility] [address] [place] [address] Dr. Antonio Goldberg EGFR-AF SIERRA LEONEAN >60 Normal >=60 [facility] Comment on above: Performed By: #### L IPID, TSH, CMP #### [facility] [address] [place] [address] Dr. Antonio Goldberg EGFR-NON AF SIERRA LEONEAN >60 Normal >=60 [facility] Comment on above: Performed By: #### L IPID, TSH, CMP #### [facility] [address] [place] [address] Dr. Antonio Goldberg Globulin (S) [Mass/Vol] 3.6 g/dL Normal [facility] Comment on above: Performed By: #### L IPID, TSH, CMP #### [facility] [address] [place] [address] Dr. Antonio Goldberg Glucose [Mass/Vol] 92 mg/dL Normal 74-106 [facility] Comment on above: Performed By: #### L IPID, TSH, CMP #### [facility] [address] [place], [place] [address] Dr. Antonio Goldberg Potassium [Moles/Vol] 4.5 mmol/L Normal 3.4-5.0 [facility] Comment on above: Performed By: #### L IPID, TSH, CMP #### [facility] [address] [place] [address] Dr. Antonio Goldberg Protein [Mass/Vol] 6.9 g/dL Normal 6.1-8.2 [facility] Comment on above: Performed By: #### L IPID, TSH, CMP #### [facility] [address] [place] [address] Dr. Antonio Goldberg Sodium [Moles/Vol] 139 mmol/L Normal 137-145 [facility] Comment on above: Performed By: #### L IPID, TSH, CMP #### [facility] [address] [place] [address] Dr. Antonio Goldberg Urea nitrogen [Mass/Vol] 14.0 mg/dL Normal 7.0-18.0 [facility] Comment on above: Performed By: #### L IPID, TSH, CMP #### [facility] [address] [place] [address] Dr. Antonio Goldberg Urea nitrogen/Creatinin e [Mass ratio] 19.2 mg/mg Normal [facility] Comment on above: Performed By: #### L IPID, TSH, CMP #### [facility] [address] [place] [address] Dr. Antonio Goldberg TSHon 05-03-2021 TSH 1.251 uIU/mL Normal 0.470-4.680 [facility] Comment on above: Performed By: #### L IPID, TSH, CMP #### [facility] [address] [place] [address] Dr. Antonio Goldberg TSH RANGE SEE BELOW Normal [facility] Comment on above: Result Comment: <0.3 4 UIU/ml HYPERTHYROID 0.34-5.60 UIU/ml EUTHYROID >5.60 UIU/ml HYPOTHYROID Performed By: #### L IPID, TSH, CMP #### [facility] [address] [place] [address] Dr. Antonio Goldberg VITAMIN B12on 05-03-2021 Cobalamin (Vitamin B12) [Mass/Vol] 562.0 pg/mL Normal 239.0-931.0 [facility] Comment on above: Performed By: #### V ITB12 #### [facility] [address] [address] [address] Antonio Goldberg Progress Note-Physicianon Protein mass conc Patient: Anette OLIVER Age: 32 years Sex: Female : 1985 Associated Diagnoses: None Author: Amol Cuenca MD Postoperative Information Post Operative Note: Post Anesthesia Care Unit. Anesthetic utilized: General. Health Status Allergies: Allergic Reactions (All)Severity Not DocumentedSulfamethoxazole- Hives.Canceled/Inactive Reactions (All)No Known Allergies Problem list: All ProblemsPlantar fasciitis left foot / SNOMED CT 138202637 / Confirmed Physical Examination Intake and Output [...] discharged from anesthesia care. Condition stable. Normal [facility] Comment on above: Result Comment: Elec tronically Signed By: Bang KOO, Amol\.br\Date and Time Signed: 09/29/17 14:29 EDT Coding Summary.on 09-25-2017 Coding Summary. CODING DATE: 018 FINAL [facility] STATUS: Home (Routine DC) PAYOR: Brandon APC DESCRIPTION 6416 Level 3 Musculoskeletal Procedures ADMIT DX: REASON FOR VISIT DX: M72.2 Plantar fascial fibromatosis FINAL DX: PRINCIPAL: M72.2 Plantar fascial fibromatosis SECONDARY: PYMT PROC APC STAT DESCRIPTION DOCTOR NAME DATE [id number] J1 Fasciotomy, foot and/or Brown DPM, Kashif A 09/20/2017 toe LT Left side (used to identify procedures performed on the left side of the body) 50364 Anesthesia for Amol Cuenca MD 09/20/2017 procedures [...] Revised Date Saved: 09/25/2017 11:35 am Normal [facility] Progress Note-Physicianon Protein mass conc Patient: [...] ProblemsPlantar fasciitis left foot / SNOMED CT 189348808 / Confirmed Histories Past Medical History: No active or resolved past medical history items have been selected or recorded. Procedure history: Caesarean section ([id number]). Social History Social & Psychosocial GqnbjnBtliong39/03/2018 Risk Assessment: Denies Alcohol UseSubstance Abuse09/15/2017 Risk Assessment: Denies Substance GdhyaHmpmukw10/03/2018 Risk Assessment: Denies Tobacco Use. Physical Examination Pain assessment: Self-reports no pain. Airway: Mallampati classification: II (soft palate, fauces, uvula visible). Distance: Adequate. Mouth: Adequate opening. Neck: Full range of motion. Respiratory: Respirations are non-labored. Cardiovascular: Regular rhythm. Neurologic: Alert, Oriented. Review / Management Results review: No qualifying data available. Plan [place] [employer] (ASA) physical status classification: [...] and lungs, allergic reactions, and .. Normal [facility] Comment on above: Result Comment: Elec tronically Signed By: Bang KOO, Amol\.br\Date and Time Signed: 09/25/17 10:41 EDT Main OR Intraoperative Recor don 09-21-2017 Main OR Intraoperative Record IntraOp Document Type FT Summary Primary Physician: Kashif Yun DPM Finalized Date/Time: 09/21/17 09:37:52 Pt. Name: COOKIE OLIVER/Sex: 1985 Female Med Rec #: [id number] Physician: Kashif Yun DPM Financial #: [id number] Pt. Type: A Room/Bed: [facility] [...] to review and send charges David Cuenca BELTING CUTTER Case Attendance FT Entry 1 Entry 2 Entry 3 Case Attendee Jama CAA, Areli Yun DPM, Kashif York RN, CNOR, Edel Role Performed Anesthesiologist Surgeon - Primary LEAD MATERIAL HANDLER Gunstock Repairer Time In 09/20/17 08:20:00 09/20/17 08:23:00 09/20/17 08:20:00 Time Out 09/20/17 08:50:00 09/20/17 08:50:00 09/20/17 08:50:00 Procedure PLANTAR FASCIA PLANTAR FASCIA PLANTAR FASCIA RELEASE(Left) RELEASE(Left) RELEASE(Left) Comments DR. CUENCA SUPERVISING Last Modified By: Wallace RN, Tayler Gonsalez RN, Tayler Carlson RN 09/20/17 08:52:00 09/20/17 08:52:00 09/20/17 08:52:00 Entry 4 Entry 5 Entry 6 Case Attendee Wallace CUH, Tayler Gallegos RN, Diego Banks CST Role Performed Drafter (Cad) Electronic - Primary Drafter (Cad) Electronic - Primary Scrub - Primary Time In [...] and tissue Entry 1 Skin Integrity Intact, Prien, Warm, and Skin Abnormality Yes Dry, Bruised [...] RN Patient Status Stable Skin. Condition Intact, Prien, Warm, and Description SAME PRE OP Dry, [...] safely administered during the perioperative period For [facility] please see scanned medication reconcilliation form for medications used at the field during the procedure. Tourniquet FT Pre-Care Text: Implements protective measures to prevent skin/tissue injury due to mechanical sources Entry 1 Tourniquet Type TOURNIQUET CUFF RED 18 Setting 250 mmHg X 4 [[id number]][F] Equipment Number B Placement Left Ankle Padding [...] BLANKET MISTRAL AIR Quantity 1 Aid TORSO [[id number]][F] Fluid/[place] Unit Mistral warming system Setting HIGH/43 DEGREES Body Site Upper anterior torso Last Modified By: Tayler Gonsalez RN 09/20/17 07:15:23 Case Comments Finalized By: Mar George CST Document Signatures Signed By: Tayler Gonsalez RN 09/20/17 08:52 Tayler Gonsalez RN 09/20/17 08:52 Mar George CST 09/21/17 09:37 Normal [facility] Inpatient Patient Summaryon 09-20-2017 [facility] Inst[facility] INFORMATION Name: COOKIE OLIVER [facility]IANS Admitting Physician: Kashif Yun DPM Physician: Kashif Yun DPM PCP: Maged NIETO DO Diagnosis: Comment: PATIENT EDUCATION INFORMATIONInstructions:Brow n - Post Operative Instructions (Custom) (Custom)Medication Leaflets:Follow up:MEDICATION LISTComment: Normal [facility] Main OR PACU I Recordon Main OR PACU I Record PACU Phase I Document Type FT Summary Primary Physician: Kashif Yun DPM Finalized Date/Time: 09/20/17 09:28:18 Pt. Name: COOKIE OLIVER /Sex: 1985 Female Med Rec #: [id number] Physician: Kashif Yun DPM Financial #: [id number] Pt. Type: A Room/Bed: [place] [address] Admit/Disch: 09/20/17 06:31:46 - Institution: Case Times [...] By: Christina Lui RN 09/20/17 09:28 Normal [facility] Main OR PACU II [facility] OR PACU II Record PACU Phase II Document Type FT Summary Primary Physician: Kashif Yun DPM Finalized Date/Time: 09/20/17 10:43:45 Pt. Name: COOKIE OLIVER/Sex: 1985 Female Med Rec #: [id number] Physician: Kashif Yun DPM Financial #: [id number] Pt. Type: A Room/Bed: 02/ Admit/Disch: 09/20/17 [...] By: Daphnie Rosas RN 09/20/17 10:43 Normal [facility] Main OR Preoperative Recordo n 09-20-2017 Cholesterol mass conc PreOp Document Type FT Summary Primary Physician: Kashif Yun DPM Finalized Date/Time: 09/20/17 08:34:47 Pt. Name: COOKIE OLIVER/Sex: 1985 Female Med Rec #: [id number] Physician: Kashif Yun DPM Financial #: [id number] Pt. Type: A Room/Bed: 02/ Admit/Disch: 09/20/17 [...] By: Tayler Gonsalez RN 09/20/17 08:34 Normal [facility] Operative Reporton 8 Operative Report Date [...] for her first postoperativevisit.Kashif Yun D.P.M.aekDictated: 09/20/2017 #[id number]: 09/20/2017 #[id number]: Kashif Yun D.P.M. [facility] Comment on above: Result Comment: Elec tronically Signed By: Jama GREEN, Kashif Cardenas\.br\Date and Time Signed: 09/20/17 09:58 EDT Patient Education - [place] 0 09-20-2017 Cholesterol mass conc [place], [place] D[place], FACFASPOST OPERATIVE INSTRUCTIONSKeep bandage [...] questions, feel free to call the doctor at:[phone] or [phone] Yun paged. Patient signature Date ____ Dr. Kashif Yun DPM, FACFAS Date Revised: 03-23 [facility] Progress Note-Physicianon Protein mass conc Patient: Anette OLIVER Age: 32 years Sex: Female : 1985 Associated Diagnoses: None Author: Kashif Yun DPM Postoperative Information Procedure: left instep plantar fasciotomy with division of fascia and muscle Date/ Time: 09/20/17 08:56:00 Preoperative Diagnosis: left plantar fascitis. Postoperative Diagnosis: courtney. Performed by: Kashif Yun DPM Estimated Blood Loss: 0 ml. Complications: None. Anesthesia type: General. [facility] Comment on above: Result Comment: Elec tronically Signed By: Kashif Yun DPM\.br\Date and Time Signed: 09/20/17 08:57 EDT Coding Summary.on 09-19-2017 Coding Summary. CODING DATE: 018 FINAL [facility] STATUS: Home (Routine DC) PAYOR: [employer] ADMIT DX: REASON FOR VISIT DX: Z01.812 [...] Rivas Date Saved: 09/19/2017 08:43 am Normal [facility] CBC w/Indiceson 09-15-2017 Erythrocyte distribution width Auto Ratio (RBC) 13.8 % Normal 10.9-14.2 [facility] Comment on above: Performed By: #### 2 [id number] ####[facility] [address] [place] [address] Hematocrit Auto Volume Fraction (Bld) 38.8 % Normal 34.0-46.0 [facility] Comment on above: Performed By: #### 2 [id number] ####[facility] [address] [place] [address] Hemoglobin mass conc (Bld) 13.3 g/dL Normal 12.0-16.0 [facility] Comment on above: Performed By: #### 2 [id number] ####[facility] [address] [place] [address] MCH Auto Entitic mass (RBC) 30.0 pg Normal 27.0-34.0 [facility] Comment on above: Performed By: #### 2 [id number] ####[facility] [address] [place] [address] MCHC Auto mass conc (RBC) 34.2 g/dL Normal 31.4-39.3 [facility] Comment on above: Performed By: #### 2 [id number] ####[facility] [address] [place] [address] MCV Auto Entitic volume (RBC) 87.7 fL Normal 80.0-100.0 [facility] Comment on above: Performed By: #### 2 [id number] ####[facility] [address] [place] [address] Platelet mean volume Auto Entitic volume (Bld) 8.1 fL Normal 6.4-10.8 [facility] Comment on above: Performed By: #### 2 [id number] ####[facility] [address] [place] [address] Platelets Auto #/vol (Bld) 320.0 E9/L Normal 150.0-500.0 [facility] Comment on above: Performed By: #### 2 [id number] ####[facility] [address] [place] [address] RBC Auto #/vol (Bld) 4.4 E12/L Normal 4.3-5.9 [facility] Comment on above: Performed By: #### 2 [id number] ####[facility] [address] [place] [address] WBC corrected for nucl RBC Auto #/vol (Bld) 8.7 E9/L Normal 4.0-11.0 [facility] Comment on above: Performed By: #### 2 [id number] ####[facility] [address] [place] [address] U BetaHcg Qualon 09-15-2017 HCG.beta subunit molar conc (U) Negative Normal [facility] Comment on above: Performed By: #### 2 [id number] ####[address] [address] Vital Signs Date Time Vital Sign Value Performing Clinician Faci lity 04-09-2024 14:06-0500 Body height 162.[address] [facility] 04-09-2024 14:06-0500 Body mass index (BMI) [Ratio] 44.9 kg/m2 [facility] 04-09-2024 14:06-0500 Body temperature 97.3 [degF] [facility] 04-09-2024 14:06-0500 Body weight 118.[address] [facility] 04-09-2024 14:06-0500 Diastolic blood pressure 103 mm[Hg] [facility] 04-09-2024 14:06-0500 Heart rate 102 /min [facility] 04-09-2024 14:06-0500 Respiratory rate 12 /min [facility] 04-09-2024 14:06-0500 Systolic blood pressure 148 mm[Hg] [facility] 12-22-2023 09:33-0500 Body height 162.[address] [facility] 12-22-2023 09:33-0500 Body mass index (BMI) [Ratio] 44.1 kg/m2 [facility] 12-22-2023 09:33-0500 Body temperature 97.5 [degF] [facility] 12-22-2023 09:33-0500 Body weight 116.[address] [facility] 12-22-2023 09:33-0500 Diastolic blood pressure 82 mm[Hg] [facility] 12-22-2023 09:33-0500 Heart rate 86 /min [facility] 12-22-2023 09:33-0500 SaO2% (BldA) [Mass fraction] 95 % [facility] 12-22-2023 09:33-0500 Systolic blood pressure 130 mm[Hg] [facility] Encounters Encounter Date Encounter Type Care Provider Facility Start: 04-09-2024 End: 04-09-2024 ambulatory [facility] Work Phone: Start: 04-09-2024 End: 04-09-2024 Patient encounter procedure [facility] Phys[facility] Work Phone: Start: 12-22-2023 End: 12-22-2023 ambulatory [facility] Work Phone: Start: 12-22-2023 End: 12-22-2023 Patient encounter procedure [facility] Physician [facility] Work Phone: Start: 06-05-2023 End: 06-05-2023 ambulatory [facility] Work Phone: Start: 06-05-2023 End: 06-05-2023 Patient encounter procedure [facility] Physician [facility] Work Phone: Start: 04-13-2023 Non-patient / Non-visit [facility] [employer] Work Phone: Start: 03-22-2023 End: 03-22-2023 ambulatory Diego Gerson Other [facility] Other Start: 03-22-2023 Office outpatient vi sit 15 minutes Diego Nieto [facility] Start: 09-12-2022 End: 09-12-2022 ambulatory Diego Nieto Other [facility] Other Start: 09-12-2022 Office outpatient vi sit 15 minutes [facility] Start: 02-13-2022 End: 02-14-[address] DIEGO NIETO Facility:[facility] Start: 01-26-2022 End: 02-12-[address] DIEGO NIETO Facility:[facility] Start: 05-06-2021 Encounter for genera l adult medical examination without abnormal findings DR DIEGO NIETO [facility] Start: 05-03-2021 Adult health examination Solo mary Nieto Other [facility] Other Start: 05-03-2021 End: 05-04-[address] DIEGO NIETO Facility:[facility] Start: 05-03-2021 End: 05-04-2021 Encounter for general adult medical examination without abnormal findings DR DIEGO NIETO Facility:[facility] Start: 04-11-2019 Gynecological examin ation normal Diego Nieto Other [facility] Other Start: 09-20-2017 End: 09-20-2017 Patient encounter Kashif Yun Facility:[facility] [place] Start: 09-15-2017 End: 09-16-2017 Patient encounter Kashif Yun Facility:[facility] [place] Start: 08-20-2017 End: 08-20-2017 Emergency department patient visit Diego Nieto Facility:[facility] Procedures Date Procedure Procedure Detail Performing Clinician Start: 09-18-2017 Pre-surgery evaluation Diego Nieto Other Start: 01-20-2017 General examination of patient Diego Nieto Other Start: 04-10-2008 Contraception care education Diego Nieto Other Depression screening Donald Nieto Other Payers Date Payer Category Payer Self-pay 1985 Unknown [id number] [id number] [id number] 1985 Unknown [id number] [id number] [id number] 1985 Unknown [id number] [id number] [id number] 1960 Unknown [id number] Medicaid [id number] Medicaid [place] [employer] [id number] Unknown [id number] [id number] [id number] Unknown Jarrod Frost [employer]BRA [id number] Social History Date Type Detail Facility Sex Assigned At [facility] Other Start: 08-20-2017 End: 04-09-2024 Tobacco smoking status NHIS Never smoked tobacco (finding) [facility] Start: 1985 Sex Assigned At Female F [facility] Start: 12-22-2023 End: 04-09-2024 Sex Female (finding) [facility] Evaluation note 03-22-2023 Note Date & [...] exercise to achieve/mainta in a normal BMI. [facility] Other Evaluation note 09-12-2022 Note Date & Type Note Facility 09-12-2022 Evaluation note Encounter Date Diagnosis Assessment Notes Aug, Acute bronchitis due to other specified organisms (ICD-10 - J20.8) Instructed to use Robitussin or Mucinex for cough, saline or Flonase NS for congestion, Tylenol for pain and fever. ER for worsening chest tightness and SOB. Call if no improvement for IP visit [facility] Other History general Narrative - Reported 09-12-2022 [...] Comment : , Problem Status : Inactive, [facility] Other Evaluation note Note Date & Type Note Facility Evaluation note Diagnosis Onset Date Bronchitis acute Chest congestion acute Fever acute [facility] Work Phone: Evaluation note Note Date & Type Note Facility Evaluation note Diagnosis Onset Date Resolution Bronchitis acute December 22, 2023 9:24am [facility] Work Phone: Evaluation note Note Date & Type Note Facility Evaluation note Diagnosis Onset Date Resolution Acute sinusitis noneactive April 09, 2024 1:42pm Sinus pressure noneactive March 172024 1:42pm [facility] Work Phone: History general Narrative - [...] Fasciitis 09/2017 Hospitalization History see surgical history [facility] Other Summary Purpose Family History No Family [...] section and content) DATE CREATED AUTHOR 10/07/2017 [facility] DATE CREATED AUTHOR AUTHOR'S ORGANIZ ATION 05/28/2018 [facility] DATE CREATED AUTHOR AUTHOR'S ORGANIZ ATION 04/06/2022 [facility] REASON FOR VISIT (unrecogniz ed section and content) [phone]-Cough, Congesti on, SOBSinuses, Body Aches, Congestion- Testing for [phone] Care Teams (unrecognized sec tion and content) [...] BE BASED ON THE PRIMARY CLINICAL RECORDS. [employer] provides no warranty or guarantee of the accuracy or completeness of information in this document.
== END 2024-05-20 08:15 | disposition home or self-care (01) ==
PROVIDERS: PCP Internal Medicine; Visit Provider Internal Medicine
DX: K80.20 Calculus of gallbladder without cholecystitis without obstruction (principal)
CPT/HCPCS: 76705